=== PATIENT | male | born 1980 | race Asian ===

== ENCOUNTER 2016-09-18 18:40 | Emergency (ER) | payer BC ==
[2016-09-18] MEDS ORDERED: ONDANSETRON 4 MG TAB.RAPDIS PO ONE (19:36)
[2016-09-18] MEDS ORDERED: OXYCODONE-ACETAMINOPHEN 5-325 MG TABLET PO ONE (19:36)
--- NOTE | 2016-09-18 19:36 | ER Document Report ---
ED Medical Screen (RME) - General Chief Complaint: Groin Pain Stated Complaint: GROIN PAIN Time seen by provider: 19:32 Mode of Arrival: Ambulatory Information source: Patient Notes: 36-year-old male complaining of a left groin pain without injury for a week and seems to be getting worse when he stands and while he is at work. He is massage therapist. There is no testicular or penis pain there is no perianal or perineal pain. No Scrotal pain. He did have hernia repair on the right side but the pain that time was similar but was in the scrotum. pulse is 120. I have greeted and performed a rapid initial assessment of this patient. A comprehensive ED assessment, evaluation of the patient, analysis of test results , and completion of the medical decision making process will be contacted by additional ED providers. TRAVEL OUTSIDE OF THE [place] IN LAST 30 DAYS: No - Related Data Allergies/Adverse Reactions: No Known Allergies Allergy (Verified 04/10/15 20:04) Past Medical History - Past Medical History Cardiac Medical History: Denies: Hx Coronary Artery Disease, Hx Heart Attack, Hx Hypertension Pulmonary Medical History: Denies: Hx Asthma, Hx Bronchitis, Hx COPD, Hx Pneumonia Neurological Medical History: Reports: Hx Migraine. Denies: Hx Cerebrovascular Accident, Hx Seizures Musculoskeltal Medical History: Denies Hx Arthritis Past Surgical History: Reports: Hx Appendectomy, Hx Cholecystectomy, Hx Inguinal Hernia - Right-sided - Immunizations Immunizations up to date: Yes Hx Diphtheria, Pertussis, Tetanus Vaccination: Yes - 2012 Physical Exam - Vital signs Vitals: Temp Pulse BP Pulse Ox 98.5 F 120 H 137/83 H 96 09/18/16 19:20 09/18/16 19:20 09/18/16 19:20 09/18/16 19:20 Course - Vital Signs Vital signs: Temp Pulse Resp BP Pulse Ox 98.5 F 120 H 137/83 H 96 09/18/16 19:20 09/18/16 19:20 09/18/16 19:20 09/18/16 19:20
[2016-09-18 20:21] LABS: APPEARANCE,URINE CLEAR; BILIRUBIN,URINE NEGATIVE (NEGATIVE); GLUCOSE, URINE NEGATIVE (NEGATIVE); KETONES,URINE NEGATIVE (NEGATIVE); LEUKOCYTE ESTERASE,URINE NEGATIVE (NEGATIVE); NITRITE,URINE NEGATIVE (NEGATIVE); PROTEIN,URINE NEGATIVE (NEGATIVE); UROBILINOGEN,URINE NEGATIVE mg/dL (<2.0)
[2016-09-18 20:22] LABS: URINE SPECIFIC GRAVITY 1.019
[2016-09-19] MEDS ORDERED: HYDROCODONE/ACETAMINOPHEN 5-325 MG 6 TAB/DSPK PO PRN (00:24)
[2016-09-19] MEDS ORDERED: ONDANSETRON ODT 4 MG TAB (6 TAB/DSPK) PO PRN (00:25)
--- NOTE | 2016-09-19 00:26 | ER Document Report ---
ED GI/ - General Mode of Arrival: Ambulatory TRAVEL OUTSIDE OF THE [place] IN LAST 30 DAYS: No - HPI Patient complains to provider of: Groin pain Associated symptoms: Other - See above - General Chief Complaint: Groin Pain Stated Complaint: GROIN PAIN Notes: Patient is a 36 year old male, with a past surgical history including cholecystectomy and inguinal hernia repair on right side, who presents to the emergency department complaining of left sided groin pain. Patient reports the pain began about a week ago and has been worsening. Patient reports the pain is exacerbated by walking. Patient also complains of nausea. Patient denies testicular pain, vomiting, diarrhea, difficulty urinating, and penile discharge. (MICHELLE GRIMES) - Related Data Allergies/Adverse Reactions: No Known Allergies Allergy (Verified 04/10/15 20:04) Past Medical History - General Information source: Patient - Social History Smoking Status: Unknown if Ever Smoked Family History: Reviewed & Not Pertinent, CAD Patient has suicidal ideation: No Patient has homicidal ideation: No Neurological Medical History: Reports: Hx Migraine Past Surgical History: Reports: Hx Appendectomy, Hx Cholecystectomy, Hx Inguinal Hernia - Right-sided - Immunizations Immunizations up to date: Yes Hx Diphtheria, Pertussis, Tetanus Vaccination: Yes - 2012 Review of Systems - Review of Systems Constitutional: No symptoms reported EENT: No symptoms reported Cardiovascular: No symptoms reported Respiratory: No symptoms reported Gastrointestinal: See HPI, Nausea. denies: Diarrhea, Vomiting Genitourinary: See HPI, Other - Groin pain. denies: Dysuria Male Genitourinary: denies: Testicular pain, Penile discharge Musculoskeletal: No symptoms reported Skin: No symptoms reported Hematologic/Lymphatic: No symptoms reported Neurological/Psychological: No symptoms reported -: Yes All other systems reviewed and negative Physical Exam - Vital signs Interpretation: Normal - General General appearance: Appears well, Alert - HEENT Head: Normocephalic, Atraumatic - Respiratory Respiratory status: No respiratory distress Chest status: Nontender Breath sounds: Normal Chest palpation: Normal - Cardiovascular Rhythm: Regular Heart sounds: Normal auscultation Murmur: No - Abdominal Inspection: Normal Distension: No distension Bowel sounds: Normal Tenderness: Tender - Tenderness to palpation of left inguinal canal, no evidence of incarcerated hernia Organomegaly: No organomegaly - Genitourinary Tenderness: Nontender - Testicles and penis not tender t opalpation - Extremities General upper extremity: Normal inspection General lower extremity: Normal inspection - Neurological Neuro grossly intact: Yes Cognition: Normal Orientation: AAOx4 Don Coma Scale Eye Opening: Spontaneous Don Coma Scale Verbal: Oriented [place] Coma Scale Motor: Obeys Commands [place] Coma Scale Total: 15 Speech: Normal - Psychological Associated symptoms: Normal affect, Normal mood - Skin Skin Temperature: Warm Skin Moisture: Dry Skin Color: Normal Course - Re-evaluation Re-evalutation: 09/19/16 Patient with left inguinal hernia. No evidence for incarceration. Urine within normal limits. Patient will be discharged home and is to follow-up with surgery. Understands agrees with plan. Return immediately if any worsening or concerning symptoms. Stable for discharge. (TODD KING) - Vital Signs Vital signs: Temp Pulse Resp BP Pulse Ox 98 F 120 H 18 137/43 H 97 09/19/16 00:34 09/19/16 00:34 09/19/16 00:34 09/19/16 00:34 09/19/16 00:34 (MICHELLE GRIMES) (TODD KING) Discharge - Discharge Clinical Impression: Inguinal hernia, left Condition: Stable Disposition: HOME, SELF-CARE Instructions: Hernia ([facility]) Prescriptions: Docusate Sodium [Colace 100 mg Capsule] 100 mg PO BID #60 capsule Ondansetron [Zofran Odt 4 mg Tablet] 1 - 2 tab PO Q4H PRN #15 tab.rapdis PRN Reason: For Nausea/Vomiting Oxycodone HCl/Acetaminophen [Percocet 5-325 mg Tablet] 1 - 2 tab PO Q4H PRN #15 tablet PRN Reason: Referrals: HAKAN QUINTANA MD [ACTIVE STAFF] - Follow up in 3-5 days Scribe Attestation: 09/19/16 05:50 I personally performed the services described in the documentation, reviewed and edited the documentation which was dictated to the scribe in my presence, and it accurately records my words and actions. (TODD KING) Scribe Documentation - Scribe Written by Scribe:: pardeep Marlow, 09/19/16, 0139 acting as scribe for :: Alejandra
[2016-09-19 00:36] VITALS: BP 137/43
== END 2016-09-19 00:35 | disposition home or self-care (01) ==
LOC: ER 18:40
DX: K40.90 Unilateral inguinal hernia, without obstruction or gangrene, not specified as recurrent (principal); R10.30 Lower abdominal pain, unspecified; R11.0 Nausea
CPT/HCPCS: 99283; 87086; 81001; S0119

== ENCOUNTER → 2016-10-12 | Outpatient (CLI) | payer BC | LOC: RAD 08:51 | PROVIDERS: ATTEND Surgery | DX: K40.90 Unilateral inguinal hernia, without obstruction or gangrene, not specified as recurrent (principal) | CPT/HCPCS: 72192 ==

== ENCOUNTER 2016-12-06 08:20 | Day surgery (SDC) | payer BC ==
--- NOTE | 2016-11-29 11:20 | EKG REPORT ---
SEVERITY:- OTHERWISE NORMAL ECG - SINUS TACHYCARDIA : Confirmed by: Abdifatah Monge 29-Nov-2016 11:19:08
[2016-11-29 11:34] LABS: HEMATOCRIT 49.8 % (37.9-51.0); HEMOGLOBIN 17.3 g/dL (13.5-17.0); HGB HCT DIFFERENCE 2.1; MEAN CORPUSCULAR HEMOGLOBIN 31.5 pg (27.0-33.4); MEAN CORPUSCULAR HGB CONC 34.7 g/dL (32.0-36.0); MEAN CORPUSCULAR VOLUME 91 fl (80-97); RED BLOOD COUNT 5.48 10^6/uL (4.35-5.55); WHITE BLOOD COUNT 11.2 10^3/uL (4.0-10.5)
[2016-11-29 11:59] LABS: ANION GAP 13 (5-19); BLOOD UREA NITROGEN 11 mg/dL (7-20); CALCIUM 9.7 mg/dL (8.4-10.2); CARBON DIOXIDE 26 mmol/L (22-30); CHLORIDE 102 mmol/L (98-107); CREATININE RESULT 0.81 mg/dL (0.52-1.25); GLUCOSE 267 mg/dL (75-110); POTASSIUM 4.7 mmol/L (3.6-5.0); SODIUM 140.5 mmol/L (137-145)
[~2016-12-06 08:20] MED LIST: BACITRACIN INJ 50,000 UNIT VIAL ONE; BUPIVACAINE HCL 0.25 % INJ/PF (2.5 MG/1 ML) 30 ML VIAL ONE; CEFAZOLIN 1 GM/D5W RTU 1 GM/50 ML RTUPB IV PRN; LACTATED RINGERS 1000 ML IV PRN; LIDOCAINE 0.5% INJ-PF (5 MG/ML) 50 ML SDV ONE; LIDOCAINE 0.5% INJ-PF (5 MG/ML) 50 ML SDV SUBCUT PRN
[2016-12-06] MEDS ORDERED: FENTANYL CITRATE INJ/PF 250 MCG/5 ML AMPULE ONE (10:12)
[2016-12-06] MEDS ORDERED: MIDAZOLAM 2 MG/2 ML INJ ONE (10:13)
[2016-12-06] MEDS ORDERED: PROPOFOL INJ 200 MG/20 ML VIAL IV ONE (10:13)
[2016-12-06] MEDS ORDERED: ACETAMINOPHEN 100 ML IV ONE (10:13)
[2016-12-06] MEDS ORDERED: MORPHINE SULFATE 10 MG/ML INJ ONE (10:14)
[2016-12-06] MEDS ORDERED: OXYCODONE-ACETAMINOPHEN 5-325 MG TABLET PO PRN ×2 (11:25)
[2016-12-06] MEDS ORDERED: PROMETHAZINE HCL INJ 25 MG/1 ML VIAL IV PRN ×2 (11:25)
[2016-12-06] MEDS ORDERED: MEPERIDINE HCL/PF INJ 25 MG/1 ML DISP.SYRIN IV PRN (11:25)
[2016-12-06] MEDS ORDERED: FENTANYL CITRATE INJ/PF 100 MCG/2 ML AMPUL IV PRN ×3 (11:25)
[2016-12-06] MEDS ORDERED: MORPHINE SULFATE 10 MG/ML INJ IV PRN (11:25)
[2016-12-06] MEDS ORDERED: DIPHENHYDRAMINE HCL 50 MG/ML VIAL IV PRN (11:25)
--- NOTE | 2016-12-06 12:00 | PDOC DISCHARGE SUMMARY ---
Discharge Summary (SDC) - Discharge Final Diagnosis: #1 left inguinal hernia, symptomatic. #2 increased body mass index. #3 migraines. Date of Surgery: 12/06/16 Discharge Date: 12/06/16 Condition: Good Treatment or Instructions: #1 activities within moderation encouraged. Activity up to the level of walking encouraged. No lifting over 10 pounds. #2 follow up in my office by appointment in about 1 week. Call for appointment. #3 the wounds covered clean and dry until office visit. #4 hold off on school/work until evaluation in office. #5 may shower in 48 hours, keep operated area as dry as possible. #6 discharge from ambulatory when ASU criteria met. #7 medications per medication reconciliation sheet. #8 Percocet and Toradol by prescription.. Also may have one Percocet up to every 2 hours when necessary for pain greater than 4 out of 10 while in the ASU Prescriptions: Ketorolac Tromethamine [Toradol 10 mg Tablet] 10 mg PO Q8HP PRN #9 tablet PRN Reason: Oxycodone HCl/Acetaminophen [Percocet 5-325 mg Tablet] 1 tab PO ASDIR PRN #15 tab PRN Reason: Discharge Diet: As Tolerated Respiratory Treatments at Home: Deep Breathing/Coughing Discharge Activity: No Lifting Over 10 Pounds, Walk Frequently Report the Following to Your Physician Immediately: Shortness of Breath, Unusual Bleeding
--- NOTE | 2016-12-06 13:45 | Operative Report ---
Operative Report DATE OF SURGERY: 12/06/16 PREOPERATIVE DIAGNOSIS: #1 left inguinal hernia, symptomatic. #2 increased body mass index. #3 migraines POSTOPERATIVE DIAGNOSIS: #1 left inguinal hernia, symptomatic. Direct. Lipoma of cord. #2 increased body mass index. #3 migraines OPERATION: Repair of direct inguinal hernia and removal of lipoma of cord. Insertion of hernia mesh. SURGEON: OLEGARIO ASHFORD DETECTIVE SUPERVISOR: none ANESTHESIA: GA TISSUE REMOVED OR ALTERED: Lipoma of cord COMPLICATIONS: None ESTIMATED BLOOD LOSS: 10 mL. INTRAOPERATIVE FINDINGS: Of a lipoma of cord. Which was excised The internal ring actually quite tight with no indirect sac. A large bulging direct hernia appreciated. Once the preperitoneal dissection at been done, it was appreciated that the femoral canal without was also clear. Nice preperitoneal coverage was accomplished using a Prolene hernia system bilayer mesh. Because of the tight ring which made preperitoneal coverage difficult to achieve, the connector of the mesh was placed at an opening in the transversalis fascia over the direct component. This resulted in nice coverage of all potential hernia offices. The ilioinguinal nerve was noted and protected. PROCEDURE: After obtaining informed consent and going over the procedure with [the patient ], he was taken to the operating room, he was anesthetized and intubated. The abdomen was prepped and draped in the usual sterile fashion. After the universal timeout, in which it was verified that the patient received IV antibiotic, the procedure commenced. A transverse incision was made in the left lower abdomen abdominal, groin area, just above the pubic tubercle. 6 cm in length.Local, regional anesthesia was infiltrated, just before incision.. Incision was made with a [15 blade scalpel] . Dissection now proceeded through the subcutaneous tissue down to the external oblique aponeurosis. The external ring was identified and the external oblique opened in the line of its fibers. The inguinal canal was thus displayed. Dissection was facilitated by the use a headlight and using loupe magnification. The spermatic cord was dissected off the pubic tubercle and surrounded with a moist Mabank drain, the cremasteric fascia was now incised longitudinally revealing the contents of the spermatic cord. A lipoma of the cord was readily evident and this was grasped with a hemostat. It was now dissected in a retrograde fashion into the retroperitoneal space. It was clamped divided and doubly ligated with 3-0 Vicryl. The internal ring was quite tight and after identifying the hypogastric vessels and dissecting beneath them it was appreciated that coverage of the this would be difficult. The transversalis fascia, tented over a bulging direct hernia was incised and dissection proceeded into the preperitoneal space. The hernia was now nicely reduced. The opportunity was taken to dissect the preperitoneum quite nicely so that the space beneath the pubic tubercle, superiorly and laterally and then inferiorly over the femoral canal and adjacent structures were free. This space easily accommodated a Ray-Estrella sponge which was then removed. Hemostasis was checked for and ensured. The space between the external and internal oblique aponeuroses was now developed to accommodate the external portion of the mesh. Having done so a Prolene hernia system mesh was now folded, in the antitank assault gunner's approved fashion and inserted into the preperitoneal space. It was deployed as flat as possible. The internal portion was deployed flat in the preperitoneal space the external portion was unfolded and tucked beneath the external oblique. Secured with a 0 PDS suture to the internal oblique superiorly, the fascia adjacent to the pubic tubercle medially, inferiorly it was split , the the split mesh was now used to surround the spermatic cord. It was reapproximated with a suture of 0 PDS. 0 PDS was now used to approximate the inferior border of the mesh to the shelving edge of Poupart's ligament with a single suture. Laterally the mesh was tucked beneath the external oblique. The external oblique was now reconstituted using a continuous suture of 3-0 PDS. 3-0 PDS interrupted sutures were used to approximate the subcutaneous tissues after removing the Mabank drain. The skin was closed using a continuous subcuticular suture of 4-0 Monocryl reinforced with Steri-Strips over benzoin. Copies dictated operative report to Dr. Olegario Glasgow MD.
[2016-12-06 14:11] VITALS: BP 127/86
[2016-12-06] MEDS ORDERED: LIDOCAINE 2% INJ-PF (20 MG/ML) 10 ML AMPUL ONE (14:54)
[2016-12-06] MEDS ORDERED: KETOROLAC TROMETHAMINE 60 MG/2 ML SDV ONE (14:54)
[2016-12-06] MEDS ORDERED: ROCURONIUM BROMIDE INJ 50 MG/5 ML VIAL IV ONE (14:54)
[2016-12-06] MEDS ORDERED: SUCCINYLCHOLINE CHLORIDE INJ 200 MG/10 ML VIAL ONE (14:54)
[2016-12-06] MEDS ORDERED: GLYCOPYRROLATE INJ 0.4 MG/2 ML VIAL ONE (14:54)
[2016-12-06] MEDS ORDERED: ONDANSETRON HCL INJ/PF 4 MG/2 ML SDV ONE (14:54)
[2016-12-06] MEDS ORDERED: METOCLOPRAMIDE HCL INJ/PF 10 MG/2 ML SDV ONE (14:54)
[2016-12-06] MEDS ORDERED: NEOSTIGMINE METHYLSULFATE 10 MG/10 ML VIAL ONE (14:54)
[2016-12-06] MEDS ORDERED: PHENYLEPHRINE HCL INJ/PF 10 MG/1 ML SDV ONE (14:54)
--- NOTE | 2016-12-06 15:43 | Operative Report ---
Operative Report DATE OF SURGERY: 12/06/16 PREOPERATIVE DIAGNOSIS: #1 left inguinal hernia, symptomatic. #2 increased body mass index. #3 migraines POSTOPERATIVE DIAGNOSIS: #1 left inguinal hernia, symptomatic. Direct. Lipoma of cord. #2 increased body mass index. #3 migraines OPERATION: Repair of direct inguinal hernia and removal of lipoma of cord. Insertion of hernia mesh. SURGEON: OLEGARIO ASHFORD MOLD FILLER AND DRAINER: none ANESTHESIA: GA TISSUE REMOVED OR ALTERED: Lipoma of cord ESTIMATED BLOOD LOSS: 10 mL. INTRAOPERATIVE FINDINGS: Of a lipoma of cord. Which was excised The internal ring actually quite tight with no indirect sac. A large bulging direct hernia appreciated. Once the preperitoneal dissection at been done, it was appreciated that the femoral canal without was also clear. Nice preperitoneal coverage was accomplished using a Prolene hernia system bilayer mesh. Because of the tight ring which made preperitoneal coverage difficult to achieve, the connector of the mesh was placed at an opening in the transversalis fascia over the direct component. This resulted in nice coverage of all potential hernia offices. The ilioinguinal nerve was noted and protected. PROCEDURE: The residential real estate assistant provided retraction, thus facilitating the operative view. Controlled bleeding. The residential real estate assistant also followed the suturing, thus facilitating accurate suture placement. Sutured skin and applied dressings.
== END 2016-12-06 14:10 | disposition home or self-care (01) ==
LOC: OROUT 08:20
PROVIDERS: ATTEND Surgery
PROC: 0YU60JZ Supplement Left Inguinal Region with Synthetic Substitute, Open Approach (ICD-10-PCS; principal; 2016-12-06 10:30)
DX: K40.90 Unilateral inguinal hernia, without obstruction or gangrene, not specified as recurrent (principal); D17.6 Benign lipomatous neoplasm of spermatic cord; G43.909 Migraine, unspecified, not intractable, without status migrainosus; F17.210 Nicotine dependence, cigarettes, uncomplicated; Z79.899 Other long term (current) drug therapy
CPT/HCPCS: 93005; 36415; 82962; 85027; 80048; 88304 ×2; 71020; 93010; 49505; C1781; J2250; J3490 ×4; J0690; J1885; J3010; J2765; J2370; J0330; J2405; J2704; J0131; 830; J2270

== ENCOUNTER 2017-11-19 13:47 | Emergency (ER) | payer BC ==
--- NOTE | 2017-11-19 15:00 | ER Document Report ---
ED Medical Screen (RME) - General Chief Complaint: Bloody Stools Stated Complaint: BLOOD IN STOOL Time Seen by Provider: 11/19/17 14:56 Notes: 37-year-old male patient reports onset yesterday evening of abdominal pain with bright red blood with bowel movements. There is no pain on defecation, no pain when wiping. He states his stool caliber and consistency is normal for him. I have greeted and performed a rapid initial assessment of this patient. A comprehensive ED assessment and evaluation of the patient, analysis of test results and completion of the medical decision making process will be conducted by additional ED providers. TRAVEL OUTSIDE OF THE [place] IN LAST 30 DAYS: No - Related Data Allergies/Adverse Reactions: No Known Allergies Allergy (Verified 11/19/17 13:47) Past Medical History - Social History Chew tobacco use (# tins/day): No Frequency of alcohol use: Rare Drug Abuse: None - Past Medical History Cardiac Medical History: Reports: Hx Hypertension - WITH PAIN Denies: Hx Coronary Artery Disease, Hx Heart Attack Pulmonary Medical History: Denies: Hx Asthma, Hx Bronchitis, Hx COPD, Hx Pneumonia Neurological Medical History: Reports: Hx Migraine. Denies: Hx Cerebrovascular Accident, Hx Seizures Renal/ Medical History: Denies: Hx Peritoneal Dialysis Musculoskeltal Medical History: Denies Hx Arthritis Past Surgical History: Reports: Hx Appendectomy, Hx Cholecystectomy, Hx Inguinal Hernia - Right-sided - Immunizations Immunizations up to date: Yes Hx Diphtheria, Pertussis, Tetanus Vaccination: Yes Physical Exam - Vital signs Vitals: Temp Pulse Resp BP Pulse Ox 98.5 F 120 H 16 150/96 H 96 11/19/17 13:55 11/19/17 13:55 11/19/17 13:55 11/19/17 13:55 11/19/17 13:55 Course - Vital Signs Vital signs: Temp Pulse Resp BP Pulse Ox 98.5 F 120 H 16 150/96 H 96 11/19/17 13:55 11/19/17 13:55 11/19/17 13:55 11/19/17 13:55 11/19/17 13:55
[2017-11-19 15:29] LABS: ABSOLUTE BASOPHILS # (AUTO) 0.1 10^3/uL (0.0-0.2); ABSOLUTE EOSINOPHILS # (AUTO) 0.9 10^3/uL (0.0-0.6); ABSOLUTE LYMPHOCYTES (AUTO) 3.9 10^3/uL (0.5-4.7); ABSOLUTE MONOCYTES (AUTO) 0.9 10^3/uL (0.1-1.4); ABSOLUTE NEUT (AUTO) 6.6 10^3/uL (1.7-8.2); EOSINOPHILS % (AUTO) 7.2 % (0-6); HEMATOCRIT 48.5 % (37.9-51.0); HEMOGLOBIN 16.8 g/dL (13.5-17.0); LYMPHOCYTES % (AUTO) 31.4 % (13-45); MEAN CORPUSCULAR HEMOGLOBIN 30.7 pg (27.0-33.4); MEAN CORPUSCULAR HGB CONC 34.7 g/dL (32.0-36.0); MEAN CORPUSCULAR VOLUME 88 fl (80-97); MONOCYTES % (AUTO) 7.3 % (3-13); PLATELET COUNT 300 10^3/uL (150-450); RED BLOOD COUNT 5.48 10^6/uL (4.35-5.55); RED CELL DISTRIBUTION WIDTH 13.6 % (11.5-14.0); SEGMENTED NEUTROPHILS % (AUTO) 53.1 % (42-78); TOTAL CELLS COUNTED % (AUTO) 100 %; WHITE BLOOD COUNT 12.4 10^3/uL (4.0-10.5)
[2017-11-19 15:43] LABS: APPEARANCE,URINE CLEAR; BILIRUBIN,URINE NEGATIVE (NEGATIVE); COLOR,URINE YELLOW; GLUCOSE, URINE NEGATIVE (NEGATIVE); KETONES,URINE NEGATIVE (NEGATIVE); LEUKOCYTE ESTERASE,URINE NEGATIVE (NEGATIVE); NITRITE,URINE NEGATIVE (NEGATIVE); PROTEIN,URINE NEGATIVE (NEGATIVE); URINE SPECIFIC GRAVITY 1.018; UROBILINOGEN,URINE NEGATIVE mg/dL (<2.0)
[2017-11-19 15:47] LABS: ALANINE AMINOTRANSFERASE 217 U/L (21-72); ALBUMIN 4.9 g/dL (3.5-5.0); ALKALINE PHOSPHATASE 112 U/L (38-126); ANION GAP 15 (5-19); ASPARTATE AMINO TRANSFERASE 144 U/L (17-59); BILIRUBIN,DIRECT 0.2 mg/dL (0.0-0.4); BILIRUBIN,TOTAL 0.5 mg/dL (0.2-1.3); BLOOD UREA NITROGEN 19 mg/dL (7-20); CALCIUM 10.3 mg/dL (8.4-10.2); CARBON DIOXIDE 25 mmol/L (22-30); CHLORIDE 102 mmol/L (98-107); GLUCOSE 137 mg/dL (75-110); POTASSIUM 4.5 mmol/L (3.6-5.0); SODIUM 141.6 mmol/L (137-145); TOTAL PROTEIN 7.8 g/dL (6.3-8.2)
[2017-11-19] MEDS ORDERED: ONDANSETRON HCL INJ/PF 4 MG/2 ML SDV IV ONE (15:50)
[2017-11-19] MEDS ORDERED: MORPHINE SULFATE 10 MG/ML INJ IV ONE (15:50)
[2017-11-19] MEDS ORDERED: NORMAL SALINE 1000 ML 1,000 ML IV ONE (15:50)
--- NOTE | 2017-11-19 15:52 | ER Document Report ---
ED GI Bleed / Rectal Pain - General Chief Complaint: Bloody Stools Stated Complaint: BLOOD IN STOOL Time Seen by Provider: 11/19/17 14:56 Mode of Arrival: Ambulatory Information source: Patient TRAVEL OUTSIDE OF THE [place] IN LAST 30 DAYS: No - HPI Patient complains to provider of: Bright red bld from rect., Dark red bld from rectum Onset: Yesterday Timing/Duration: Persistent Quality of pain: Achy, Cramping Severity of symptoms: Moderate Pain Level: 3 Exacerbated by: Denies Relieved by: Denies Similar symptoms previously: No Recently seen / treated by doctor: No Notes: Patient is a 37-year-old male presenting to the emergency room complaining of lower abdominal pain and cramping with nausea and bloody diarrhea, symptoms have been going on since yesterday, he denies any history of any inflammatory bowel disease, does have a history of appendectomy and cholecystectomy in the past, he is a smoker but rarely consumes alcohol and denies any illicit drug use , no history of GI bleeding in the past - Related Data Allergies/Adverse Reactions: No Known Allergies Allergy (Verified 11/19/17 13:47) Past Medical History - General Information source: Patient - Social History Smoking Status: Current Every Day Smoker Chew tobacco use (# tins/day): No Frequency of alcohol use: Rare Drug Abuse: None Family History: Reviewed & Not Pertinent, CAD Patient has suicidal ideation: No Patient has homicidal ideation: No - Past Medical History Cardiac Medical History: Reports: Hx Hypertension - WITH PAIN Denies: Hx Coronary Artery Disease, Hx Heart Attack Pulmonary Medical History: Denies: Hx Asthma, Hx Bronchitis, Hx COPD, Hx Pneumonia Neurological Medical History: Reports: Hx Migraine. Denies: Hx Cerebrovascular Accident, Hx Seizures Renal/ Medical History: Denies: Hx Peritoneal Dialysis Musculoskeltal Medical History: Denies Hx Arthritis Past Surgical History: Reports: Hx Appendectomy, Hx Cholecystectomy, Hx Inguinal Hernia - Right-sided - Immunizations Immunizations up to date: Yes Hx Diphtheria, Pertussis, Tetanus Vaccination: Yes Review of Systems - Review of Systems Constitutional: No symptoms reported EENT: No symptoms reported Cardiovascular: No symptoms reported Respiratory: No symptoms reported Gastrointestinal: See HPI Genitourinary: No symptoms reported Male Genitourinary: No symptoms reported Musculoskeletal: No symptoms reported Skin: No symptoms reported Hematologic/Lymphatic: No symptoms reported Neurological/Psychological: No symptoms reported -: Yes All other systems reviewed and negative Physical Exam - Vital signs Vitals: Temp Pulse Resp BP Pulse Ox 98.5 F 120 H 16 150/96 H 96 11/19/17 13:55 11/19/17 13:55 11/19/17 13:55 11/19/17 13:55 11/19/17 13:55 Interpretation: Tachycardic - General General appearance: Appears well, Alert - HEENT Head: Normocephalic, Atraumatic Eyes: Normal Pupils: PERRL - Respiratory Respiratory status: No respiratory distress Chest status: Nontender Breath sounds: Normal Chest palpation: Normal - Cardiovascular Rhythm: Regular Heart sounds: Normal auscultation Murmur: No - Abdominal Inspection: Normal Distension: No distension Bowel sounds: Normal Tenderness: Tender - Right lower quadrant and left lower quadrant Organomegaly: No organomegaly - Rectal Tenderness: No Stool: Other - Small amount of gross blood, bright red - Back Back: Normal, Nontender - Extremities General upper extremity: Normal inspection, Nontender, Normal color, Normal ROM , Normal temperature General lower extremity: Normal inspection, Nontender, Normal color, Normal ROM , Normal temperature, Normal weight bearing. No: Cedrick's sign - Neurological Neuro grossly intact: Yes Cognition: Normal Orientation: AAOx4 [place] Coma Scale Eye Opening: Spontaneous Don Coma Scale Verbal: Oriented [place] Coma Scale Motor: Obeys Commands [place] Coma Scale Total: 15 Speech: Normal Motor strength normal: LUE, RUE, LLE, RLE Sensory: Normal - Psychological Associated symptoms: Normal affect, Normal mood - Skin Skin Temperature: Warm Skin Moisture: Dry Skin Color: Normal Course - Re-evaluation Re-evalutation: 11/19/17 18:27 Lab and imaging findings discussed with patient at bedside which are unremarkable, except for mild liver enzyme elevation and evidence of fatty liver on CT scan, also mild leukocytosis noted, patient reports a known history of fatty liver disease with liver enzyme changes, denies any pain in the right upper quadrant, no vomiting, rectal exam is consistent with small internal hemorrhoids with small amount of gross bright red blood, hemoglobin is 16.8, vital signs are stable, therefore patient will be discharged with instructions for follow-up with gastroenterology, as well as a prescription for stool softeners and antibiotics, advised to return if symptoms worsen, patient acknowledges understanding and agreement with this plan - Vital Signs Vital signs: Temp Pulse Resp BP Pulse Ox 98.5 F 120 H 16 150/96 H 96 11/19/17 13:55 11/19/17 13:55 11/19/17 13:55 11/19/17 13:55 11/19/17 13:55 - Laboratory Result Diagrams: 11/19/17 15:08 11/19/17 15:08 Laboratory results interpreted by me: 11/19/17 11/19/17 15:08 15:08 WBC 12.4 H Eosinophils % 7.2 H Absolute Eosinophils 0.9 H Glucose 137 H Calcium 10.3 H AST 144 H ALT 217 H - Diagnostic Test Radiology reviewed: Image reviewed, Reports reviewed Discharge - Discharge Clinical Impression: Internal hemorrhoids, Rectal bleeding Abdominal pain Qualifiers: Abdominal location: lower abdomen, unspecified Qualified Code(s): R10.30 - Lower abdominal pain, unspecified Condition: Stable Disposition: HOME, SELF-CARE Instructions: Abdominal Pain ([facility]), Hemorrhoids ([facility]), Rectal Bleeding, Unclear Cause ([facility]), Gastroenterology Additional Instructions: Follow up with your primary care provider and gastroenterology in one to 2 days. Return to the emergency room immediately if symptoms worsen or any additional concerns. Prescriptions: Docusate Sodium [Colace] 100 mg PO BID #60 capsule Metronidazole [Flagyl 500 mg Tablet] 500 mg PO TID #21 tablet
--- NOTE | 2017-11-19 17:21 | RADIOLOGY REPORT (SQ) ---
EXAM DESCRIPTION: CT ABD/PELVIS WITH IV ONLY COMPLETED DATE/TIME: 11/19/2017 5:12 pm REASON FOR STUDY: pain, bloody stools COMPARISON: None. TECHNIQUE: CT scan of the abdomen and pelvis performed using helical scanning technique with dynamic intravenous contrast injection. No oral contrast. Images reviewed with lung, soft tissue, and bone windows. Reconstructed coronal and sagittal MPR images reviewed. Delayed images for evaluation of the urinary system also acquired. All images stored on PACS. All CT scanners at this facility use dose modulation, iterative reconstruction, and/or weight based d osing when appropriate to reduce radiation dose to as low as reasonably achievable (ALARA). [facility]: Dose Right [facility]: CareDose [facility]: Dose Right [facility]: Teradose 4D [facility]: Solazyme CONTRAST TYPE AND DOSE: contrast/concentration: Isovue 370.00 mg/ml; Total Contrast Delivered: 91.0 ml; Total Saline Delivered: 58.0 ml RENAL FUNCTION: None required. The patient is less than 50 years old. RADIATION DOSE: CT Rad equipment meets quality standard of care and radiation dose reduction techniq ues were employed. CTDIvol: 18.6 - 20.3 mGy. DLP: 2189 mGy-cm.. LIMITATIONS: None. FINDINGS: LOWER CHEST: No significant findings. No nodules or infiltrates. LIVER: Diffuse fatty infiltration of the liver. No focal masses. SPLEEN: Normal size. No focal lesions. PANCREAS: No masses. No significant calcifications. No adjacent inflammation or peripancreatic fluid collections. Pancreatic duct not dilated. GALLBLADDER: Surgically absent. ADRENAL GLANDS: No significant masses or asymmetry. RIGHT KIDNEY AND URETER: No solid masses. No significant calcifications. No hydronephrosis or hyd roureter. LEFT KIDNEY AND URETER: No solid masses. No significant calcifications. No hydronephrosis or hydr oureter. AORTA AND VESSELS: No aneurysm. No dissection. Renal arteries, SMA, celiac without stenosis. RETROPERITONEUM: No retroperitoneal adenopathy, hemorrhage or masses. BOWEL AND PERITONEAL CAVITY: No masses or inflammatory changes. No free fluid or peritoneal masses. APPENDIX: Surgically absent. PELVIS: No mass. No free fluid. Normal bladder. ABDOMINAL WALL: No masses. No hernias. BONES: No significant or acute findings. OTHER: No other significant finding. IMPRESSION: Diffuse fatty liver. No other finding. TECHNICAL DOCUMENTATION: JOB ID: [id number] Quality ID # [id number]: Final reports with documentation of one or more dose reduction techniques (e.g., Au tomated exposure control, adjustment of the mA and/or kV according to patient size, use of iterative reconstruction technique) 2010 [employer]- All Rights Reserved Reading location - IP/workstation name: [email or web address]
[2017-11-19 18:01] LABS: PROTHROMBIN TIME 13.5 SEC (11.4-15.4)
[2017-11-19 18:02] LABS: INTERNATIONAL RATION (INR) 0.98; PARTIAL THROMBOPLASTIN TIME 34.9 SEC (23.5-35.8)
[2017-11-19 18:52] VITALS: BP 113/73
== END 2017-11-19 18:52 | disposition home or self-care (01) ==
LOC: ER 13:47
DX: K64.8 Other hemorrhoids (principal); K62.5 Hemorrhage of anus and rectum; R10.30 Lower abdominal pain, unspecified; R11.0 Nausea; R19.7 Diarrhea, unspecified; R74.8 Abnormal levels of other serum enzymes; D72.829 Elevated white blood cell count, unspecified; Z90.49 Acquired absence of other specified parts of digestive tract; F17.200 Nicotine dependence, unspecified, uncomplicated; I10 Essential (primary) hypertension
CPT/HCPCS: 99284; 96361; 96374; 96375; 36415; 83690; 85025; 85610; 85730; 80053; 81001; 74177; J2270; J2405; J7030

== ENCOUNTER 2017-12-01 14:17 | Emergency (ER) | payer BC ==
--- NOTE | 2017-12-01 15:21 | ER Document Report ---
ED Medical Screen (RME) - General Chief Complaint: Diarrhea Stated Complaint: ABDOMINAL PAIN/DIARRHEA Time Seen by Provider: 12/01/17 15:10 Mode of Arrival: Ambulatory Information source: Patient Notes: 37-year-old male history of abdominal pain bloody stools approximately seen 2 weeks ago placed on Flagyl with a normal CT of the abdomen presents with complaints of continued bleeding and abdominal pain. Patient noted to be tachycardic upon arrival I have greeted and performed a rapid initial assessment of this patient. A comprehensive ED assessment and evaluation of the patient, analysis of test results and completion of the medical decision making process will be conducted by additional ED providers. PHYSICAL EXAMINATION: GENERAL: Well-appearing, well-nourished and in no acute distress. HEAD: Atraumatic, normocephalic. EYES: Pupils equal round extraocular movements intact, conjunctiva are normal. ENT: Nares patent NECK: Normal range of motion LUNGS: No respiratory distress Musculoskeletal: Normal range of motion NEUROLOGICAL: Normal speech, normal gait. PSYCH: Normal mood, normal affect. SKIN: Warm, Dry, normal turgor, no rashes or lesions noted. TRAVEL OUTSIDE OF THE [place] IN LAST 30 DAYS: No - Related Data Allergies/Adverse Reactions: No Known Allergies Allergy (Verified 12/01/17 14:17) Past Medical History - Social History Chew tobacco use (# tins/day): No Frequency of alcohol use: Rare Drug Abuse: None - Past Medical History Cardiac Medical History: Reports: Hx Hypertension - WITH PAIN Denies: Hx Coronary Artery Disease, Hx Heart Attack Pulmonary Medical History: Denies: Hx Asthma, Hx Bronchitis, Hx COPD, Hx Pneumonia Neurological Medical History: Reports: Hx Migraine. Denies: Hx Cerebrovascular Accident, Hx Seizures Endocrine Medical History: Reports: Hx Diabetes Mellitus Type 2 Renal/ Medical History: Denies: Hx Peritoneal Dialysis Musculoskeltal Medical History: Denies Hx Arthritis Past Surgical History: Reports: Hx Abdominal Surgery - hernia x2, Hx Appendectomy, Hx Cholecystectomy, Hx Inguinal Hernia - Right-sided - Immunizations Immunizations up to date: Yes Hx Diphtheria, Pertussis, Tetanus Vaccination: Yes Physical Exam - Vital signs Vitals: Temp Pulse Resp BP Pulse Ox 98.5 F 125 H 16 153/95 H 98 12/01/17 14:21 12/01/17 14:21 12/01/17 14:21 12/01/17 14:21 12/01/17 14:21 Course - Vital Signs Vital signs: Temp Pulse Resp BP Pulse Ox 98.5 F 125 H 16 153/95 H 98 12/01/17 14:21 12/01/17 14:21 12/01/17 14:21 12/01/17 14:21 12/01/17 14:21
[2017-12-01] MEDS ORDERED: NORMAL SALINE 1000 ML 1,000 ML IV ONE (15:50)
--- NOTE | 2017-12-01 16:12 | ER Document Report ---
ED General - General Chief Complaint: Diarrhea Stated Complaint: ABDOMINAL PAIN/DIARRHEA Time Seen by Provider: 12/01/17 15:10 Mode of Arrival: Ambulatory Notes: 37-year-old male to emergency department chief complaint of abdominal pain and diarrhea with blood in the stool. Patient was seen here 2 weeks ago for bloody bowel movements but not diarrhea. At that time he was treated with some antibiotics. Had a CT scan at that time it was reportedly unremarkable. Has taken his antibiotics but continues to have worsening abdominal pain and bleeding. Has not had any fever, chills, sweats. Denies any other extra- abdominal symptoms such as mouth sores, vision changes, eye problems or rash. TRAVEL OUTSIDE OF THE [place] IN LAST 30 DAYS: No - HPI Onset: Last week - Related Data Allergies/Adverse Reactions: No Known Allergies Allergy (Verified 12/01/17 14:17) Past Medical History - General Information source: Patient - Social History Smoking Status: Current Every Day Smoker Chew tobacco use (# tins/day): No Frequency of alcohol use: Rare Drug Abuse: None Family History: Reviewed & Not Pertinent, CAD Patient has suicidal ideation: No Patient has homicidal ideation: No - Past Medical History Cardiac Medical History: Reports: Hx Hypertension - WITH PAIN Denies: Hx Coronary Artery Disease, Hx Heart Attack Pulmonary Medical History: Denies: Hx Asthma, Hx Bronchitis, Hx COPD, Hx Pneumonia Neurological Medical History: Reports: Hx Migraine. Denies: Hx Cerebrovascular Accident, Hx Seizures Endocrine Medical History: Reports: Hx Diabetes Mellitus Type 2 Renal/ Medical History: Denies: Hx Peritoneal Dialysis Musculoskeltal Medical History: Denies Hx Arthritis Past Surgical History: Reports: Hx Abdominal Surgery - hernia x2, Hx Appendectomy, Hx Cholecystectomy, Hx Inguinal Hernia - Right-sided - Immunizations Immunizations up to date: Yes Hx Diphtheria, Pertussis, Tetanus Vaccination: Yes Review of Systems - Review of Systems Constitutional: denies: Fever, Malaise, Weakness EENT: No symptoms reported. denies: Eye pain, Eye discharge, Blurred vision, Ear pain, Throat pain, Mouth pain Cardiovascular: denies: Chest pain, Palpitations, Heart racing Respiratory: denies: Cough, Hurts to breathe, Hemoptysis, Short of breath Gastrointestinal: Abdominal pain, Diarrhea, Nausea, Blood streaked bowels. denies: Vomiting Genitourinary: denies: Dysuria, Discharge, Flank pain, Urgency Male Genitourinary: No symptoms reported Musculoskeletal: denies: Back pain, Gout, Joint pain Skin: denies: Dryness, Lesions, Lumps, Rash Hematologic/Lymphatic: denies: Anemia, Blood clots, Easy bleeding, Easy bruising Neurological/Psychological: denies: Confusion, Weakness, Headaches, Numbness Physical Exam - Vital signs Vitals: Temp Pulse Resp BP Pulse Ox 98.5 F 125 H 16 153/95 H 98 12/01/17 14:21 12/01/17 14:21 12/01/17 14:21 12/01/17 14:21 12/01/17 14:21 Interpretation: Normal - General General appearance: Appears well, Alert - HEENT Head: Normocephalic, Atraumatic Eyes: Normal Pupils: PERRL - Respiratory Respiratory status: No respiratory distress Chest status: Nontender Breath sounds: Normal Chest palpation: Normal - Cardiovascular Rhythm: Regular Heart sounds: Normal auscultation Murmur: No - Abdominal Inspection: Normal Distension: No distension Bowel sounds: Normal Tenderness: Nontender. No: Dunlap's sign, Guarding, Rebound Organomegaly: No organomegaly - Back Back: Normal, Nontender - Extremities General upper extremity: Normal inspection, Nontender, Normal color, Normal ROM , Normal temperature General lower extremity: Normal inspection, Nontender, Normal color, Normal ROM , Normal temperature, Normal weight bearing. No: Cedrick's sign - Neurological Neuro grossly intact: Yes Cognition: Normal Orientation: AAOx4 [place] Scale Eye Opening: Spontaneous [place] Com[place] Scale Verbal: Oriented [place] Coma Scale Motor: Obeys Commands [place] Coma Scale Total: 15 Speech: Normal Motor strength normal: LUE, RUE, LLE, RLE Sensory: Normal - Psychological Associated symptoms: Normal affect, Normal mood - Skin Skin Temperature: Warm Skin Moisture: Dry Skin Color: Normal Course - Re-evaluation Re-evalutation: 12/01/17 16:41 This is a relatively well-appearing 37-year-old male in no acute distress. History of worsening abdominal pain and diarrhea now with blood. Likely this is some sort of inflammatory bowel disease like ulcerative colitis versus Crohn' s disease. Denies any extra abdominal manifestations. Labs are fairly unremarkable. 12/01/17 17:39 This is a well-appearing male in no acute distress. Good color. Normal H&H. Slightly elevated WBC count but this appears to be chronic. Chronically elevated liver function studies. Occult blood negative. Had a CT scan a few weeks ago which did not show any major pathology so unlikely we would see anything by repeat CT scan. I am going to give him strict instructions with regards to outpatient follow-up care. Patient will need to have a colonoscopy to have this evaluated. Patient verbalized understanding of instructions. Patient verbalized understanding that if he developed black tarry stools, bright red blood, maroon colored stools, worsening pain, passing out, feeling weak or for any other concerns he needs to return immediately. Rectal exam was performed. No bright red blood or tarry looking stool. Unable to perform endoscopy as there is no anoscope available in the hospital. he was advised that he needs good close follow-up. 12/01/17 18:25 12/01/17 18:30 - Vital Signs Vital signs: Temp Pulse Resp BP Pulse Ox 98.5 F 125 H 16 153/95 H 98 12/01/17 14:21 12/01/17 14:21 12/01/17 14:21 12/01/17 14:21 12/01/17 14:21 - Laboratory Result Diagrams: 12/01/17 16:01 12/01/17 16:01 Laboratory results interpreted by me: 12/01/17 12/01/17 16:01 16:01 WBC 11.1 H RBC 5.66 H Hgb 17.4 H Eosinophils % 6.6 H Absolute Eosinophils 0.7 H Glucose 157 H AST 95 H ALT 206 H Total Protein 8.3 H Discharge - Discharge Clinical Impression: Bloody diarrhea Condition: Good Disposition: HOME, SELF-CARE Instructions: Rectal Bleeding, Unclear Cause ([facility]), Diarrhea, Nonspecific ([facility]) Additional Instructions: A list of specialists has been provided. Please follow-up as a colonoscopy is in order at this time. You may have some sort of chronic bowel disease which will need to be evaluated. Your CT scan performed a few weeks ago was unremarkable. Your physical exam today was fairly unremarkable. In the event that you develop any worsening bleeding, worsening pain, black tarry looking stools, passing out or other concerns you should return immediately. Prescriptions: Hydrocodone/Acetaminophen [[place] 5-325 mg Tablet] 1 tab PO TID PRN 4 Days #12 tablet PRN Reason: Referrals: MERRY WINTER MD [Primary Care Provider] - Follow up as needed
[2017-12-01 16:32] LABS: ABSOLUTE BASOPHILS # (AUTO) 0.1 10^3/uL (0.0-0.2); ABSOLUTE EOSINOPHILS # (AUTO) 0.7 10^3/uL (0.0-0.6); ABSOLUTE LYMPHOCYTES (AUTO) 3.1 10^3/uL (0.5-4.7); ABSOLUTE MONOCYTES (AUTO) 0.7 10^3/uL (0.1-1.4); ABSOLUTE NEUT (AUTO) 6.3 10^3/uL (1.7-8.2); BASOPHILS % (AUTO) 0.8 % (0-2); EOSINOPHILS % (AUTO) 6.6 % (0-6); HEMATOCRIT 50.4 % (37.9-51.0); HEMOGLOBIN 17.4 g/dL (13.5-17.0); LYMPHOCYTES % (AUTO) 28.4 % (13-45); MEAN CORPUSCULAR HEMOGLOBIN 30.7 pg (27.0-33.4); MEAN CORPUSCULAR HGB CONC 34.5 g/dL (32.0-36.0); MEAN CORPUSCULAR VOLUME 89 fl (80-97); MONOCYTES % (AUTO) 6.7 % (3-13); PLATELET COUNT 296 10^3/uL (150-450); RED BLOOD COUNT 5.66 10^6/uL (4.35-5.55); RED CELL DISTRIBUTION WIDTH 13.7 % (11.5-14.0); SEGMENTED NEUTROPHILS % (AUTO) 57.5 % (42-78); TOTAL CELLS COUNTED % (AUTO) 100 %; WHITE BLOOD COUNT 11.1 10^3/uL (4.0-10.5)
[2017-12-01 16:49] LABS: ALANINE AMINOTRANSFERASE 206 U/L (21-72); ALKALINE PHOSPHATASE 111 U/L (38-126); ANION GAP 16 (5-19); ASPARTATE AMINO TRANSFERASE 95 U/L (17-59); BILIRUBIN,DIRECT 0.4 mg/dL (0.0-0.4); BILIRUBIN,TOTAL 0.5 mg/dL (0.2-1.3); BLOOD UREA NITROGEN 15 mg/dL (7-20); CALCIUM 9.9 mg/dL (8.4-10.2); CARBON DIOXIDE 25 mmol/L (22-30); CHLORIDE 102 mmol/L (98-107); GLUCOSE 157 mg/dL (75-110); LIPASE 110.3 U/L (23-300); POTASSIUM 4.8 mmol/L (3.6-5.0); SODIUM 143.4 mmol/L (137-145); TOTAL PROTEIN 8.3 g/dL (6.3-8.2)
[2017-12-01 19:31] VITALS: BP 123/78
== END 2017-12-01 20:00 | disposition home or self-care (01) ==
LOC: ER 14:17
DX: K92.1 Melena (principal); F17.200 Nicotine dependence, unspecified, uncomplicated; R10.9 Unspecified abdominal pain; I10 Essential (primary) hypertension; E11.9 Type 2 diabetes mellitus without complications; Z90.49 Acquired absence of other specified parts of digestive tract
CPT/HCPCS: 99284; 96360; 36415; 83690; 85025; 82272; 80053; 83605; J7030

== ENCOUNTER 2018-01-26 15:09 | Emergency (ER) | payer BC ==
[2018-01-26] MEDS ORDERED: METOCLOPRAMIDE HCL INJ/PF 10 MG/2 ML SDV IV ONE (16:53)
[2018-01-26] MEDS ORDERED: KETOROLAC TROMETHAMINE INJ/PF 30 MG/1 ML SDV IV ONE (16:53)
[2018-01-26] MEDS ORDERED: DIPHENHYDRAMINE HCL 50 MG/ML VIAL IV ONE (16:53)
--- NOTE | 2018-01-26 16:57 | ER Document Report ---
ED Headache - General Chief Complaint: Headache Stated Complaint: HEAD ACHE Time Seen by Provider: 01/26/18 16:53 Notes: The patient is a 37-year-old male, past medical history migraines, presents with 3 days of his usual left-sided migraine. He says that Stadol usually helps his migraine, but he ran out and his neurologist, Dr. Davis, is in the hospital and is unable to refill his prescriptions. He takes amitriptyline and Neurontin without much relief of his headache. Denies blurry vision, fevers , neck stiffness, focal weakness, numbness, tingling, difficulty swallowing, chest pain or shortness of breath. TRAVEL OUTSIDE OF THE [place] IN LAST 30 DAYS: No - Related Data Allergies/Adverse Reactions: No Known Allergies Allergy (Verified 12/01/17 14:17) Past Medical History - General Information source: Patient - Social History Smoking Status: Unknown if Ever Smoked Family History: Reviewed & Not Pertinent, CAD - Past Medical History Cardiac Medical History: Reports: Hx Hypertension - WITH PAIN Denies: Hx Coronary Artery Disease, Hx Heart Attack Pulmonary Medical History: Denies: Hx Asthma, Hx Bronchitis, Hx COPD, Hx Pneumonia Neurological Medical History: Reports: Hx Migraine. Denies: Hx Cerebrovascular Accident, Hx Seizures Endocrine Medical History: Reports: Hx Diabetes Mellitus Type 2 Renal/ Medical History: Denies: Hx Peritoneal Dialysis Musculoskeltal Medical History: Denies Hx Arthritis Past Surgical History: Reports: Hx Abdominal Surgery - hernia x2, Hx Appendectomy, Hx Cholecystectomy, Hx Inguinal Hernia - Right-sided - Immunizations Immunizations up to date: Yes Hx Diphtheria, Pertussis, Tetanus Vaccination: Yes Review of Systems - Review of Systems Notes: REVIEW OF SYSTEMS: CONSTITUTIONAL: -fevers, -chills EENT: -eye pain, -difficulty swallowing, -nasal congestion CARDIOVASCULAR: -chest pain, -syncope. RESPIRATORY: -cough, -SOB GASTROINTESTINAL: -abdominal pain, -nausea, -vomiting, -diarrhea GENITOURINARY: -dysuria, -hematuria MUSCULOSKELETAL: -back pain, -neck pain SKIN: -rash or skin lesions. HEMATOLOGIC: -easy bruising or bleeding. LYMPHATIC: -swollen, enlarged glands. NEUROLOGICAL: -altered mental status or loss of consciousness, +headache, - neurologic symptoms PSYCHIATRIC: -anxiety, -depression. ALL OTHER SYSTEMS REVIEWED AND NEGATIVE. Physical Exam - Vital signs Vitals: Temp Pulse Resp BP Pulse Ox 99.3 F 134 H 17 136/85 H 98 01/26/18 15:14 01/26/18 15:14 01/26/18 15:14 01/26/18 15:14 01/26/18 15:14 - Notes Notes: PHYSICAL EXAMINATION: GENERAL: Well-appearing, well-nourished and in no acute distress. HEAD: Atraumatic, normocephalic. EYES: Pupils equal round and reactive to light, extraocular movements intact, sclera anicteric, conjunctiva are normal. ENT: nares patent, oropharynx clear without exudates. Moist mucous membranes. NECK: Normal range of motion, supple without lymphadenopathy LUNGS: Breath sounds clear to auscultation bilaterally and equal. No wheezes rales or rhonchi. HEART: Tachycardia, regular rhythm. ABDOMEN: Soft, nontender, normoactive bowel sounds. No guarding, no rebound. No masses appreciated. EXTREMITIES: Normal range of motion, no pitting or edema. No cyanosis. NEUROLOGICAL: Cranial nerves grossly intact. Normal speech, normal gait. Normal sensory and motor exams. PSYCH: Normal mood, normal affect. SKIN: Warm, Dry, normal turgor, no rashes or lesions noted. Course - Re-evaluation Re-evalutation: Patient's headache is exactly the same as his prior headaches. He ran out of his Stadol and is unable to refill it due to his neurologist being hospitalized. Will attempt a headache cocktail and sphenopalatine ganglion black to help with his headache. No Stadol at [facility] and unable to refill narcotics for chronic pain due to [facility]'s Narcotic policy in the ER. 01/26/18 19:43 Pt's headache has improved and his tachycardia also improved. Symptoms are not typical for SAH, ICH or meningitis at this time. Instructed him to follow-up with his regular physician and neurologist for further evaluation and treatment. - Vital Signs Vital signs: Temp Pulse Resp BP Pulse Ox 99.3 F 134 H 17 136/85 H 98 01/26/18 15:14 01/26/18 15:14 01/26/18 15:14 01/26/18 15:14 01/26/18 15:14 Discharge - Discharge Clinical Impression: Chronic headache Qualifiers: Headache type: unspecified Intractability: not intractable Qualified Code(s): R51 - Headache Condition: Stable Disposition: HOME, SELF-CARE Additional Instructions: HEADACHE: The physician does not feel that the headache you are experiencing has a serious underlying cause. Most headaches are due to emotional stress, with resultant muscle tension (tension headache). Occasionally, headaches are secondary to changes in the blood vessels of the scalp (vascular headache and migraine headache). Sometimes, a headache is the first symptom of another developing illness, such as a viral infection. You have no evidence of stroke, bleeding, meningitis, or other serious cause of your headache. The treatment of headaches varies with the severity and cause of the pain. Not all headaches need pain shots. In fact, there is evidence that using narcotics for headaches may make them worse in the long run. The physician will determine the therapy that's in your best interest. If you develop a fever, if the headache is different from any you've previously experienced, or if the headache progressively worsens, then call your physician at once or go to the emergency room. REGLAN (METOCLOPRAMIDE): Reglan has been prescribed. This medicine affects the stomach and intestines. It can be used to treat nausea and vomiting, to prevent reflux of stomach acid up into the esophagus, or to increase the contractions of the stomach and intestines. It is often prescribed for esophagitis, and for paralysis of the stomach in diabetics. Reglan can cause either mild restlessness or drowsiness. You should contact the doctor at once if you become extremely restless, anxious, or cannot sleep, or if you develop uncontrollable motions of the lips, tongue, or jaw. Do not take alcohol with this medicine. Do not drive or operate machinery until you have been taking this medicine long enough to know how it affects you. Call the doctor if you develop abdominal pains, lightheadedness, black stool, or blood in the stool or vomitus. USE OF DIPHENHYDRAMINE: Diphenhydramine (Benadryl) is an antihistamine and has been recommended to help treat your headache and to prevent side effects of other medications used to treat headaches. The medication can be repeated four times daily. Age Elixir (12.5 mg/tsp) 25 mg pill adult 1-2 tabs Antihistamines may cause drowsiness, especially with the first dose. Do not operate machinery or drive while under the effects of the medication. Do not combine the medication with alcohol, or with any other medication without talking to your doctor. TORADOL INJECTION: You have been given an injection of ketorolac tromethamine (Toradol). This is an excellent, safe drug for pain control. It also has potent antiinflammatory action. You should have significant pain relief within about one hour. Toradol is not addicting and is non-sedating. It does not interfere with driving or work. Call or return if you develop itching, hives, shortness of breath, or rash. FOLLOW-UP CARE: If you have been referred to a physician for follow-up care, call the physician s office for an appointment as you were instructed or within the next two days. If you experience worsening or a significant change in your symptoms, notify the physician immediately or return to the Emergency Department at any time for re-evaluation. Forms: Elevated Blood Pressure Referrals: MERRY WINTER MD [Primary Care Provider] - Follow up as needed LYNN DURHAM MD [NO LOCAL MD] - Follow up as needed
[2018-01-26] MEDS ORDERED: DEXAMETHASONE SOD PHOS INJ 10 MG/1 ML VIAL IV ONE (16:58)
[2018-01-26] MEDS ORDERED: BUPIVACAINE HCL 0.5 % INJ/PF 30 ML SDV INJ ONE (17:08)
[2018-01-26] MEDS: NORMAL SALINE 1000 ML 1,000 ML IV PRN ×2 (17:17→17:18)
[2018-01-26] MEDS ORDERED: KETAMINE HCL INJ 500 MG/10 ML VIAL IV ONE (18:09)
[2018-01-26 20:17] VITALS: BP 132/94
== END 2018-01-26 20:17 | disposition home or self-care (01) ==
LOC: ER 15:09
DX: G43.909 Migraine, unspecified, not intractable, without status migrainosus (principal); I10 Essential (primary) hypertension; E11.9 Type 2 diabetes mellitus without complications
CPT/HCPCS: 99283; 96361; 96374; 96375; J1200; J3490; J1885; J2765; J7030; J1100

== ENCOUNTER 2018-03-23 11:55 | Day surgery (SDC) | payer BC ==
--- NOTE | 2018-03-16 09:56 | EKG REPORT ---
SEVERITY:- NORMAL ECG - SINUS RHYTHM : Confirmed by: Crystal Frausto MD 16-Mar-2018 09:56:04
[2018-03-16 10:59] LABS: ABSOLUTE BASOPHILS # (AUTO) 0.1 10^3/uL (0.0-0.2); ABSOLUTE EOSINOPHILS # (AUTO) 0.7 10^3/uL (0.0-0.6); ABSOLUTE LYMPHOCYTES (AUTO) 3.4 10^3/uL (0.5-4.7); ABSOLUTE MONOCYTES (AUTO) 0.9 10^3/uL (0.1-1.4); ABSOLUTE NEUT (AUTO) 6.4 10^3/uL (1.7-8.2); BASOPHILS % (AUTO) 0.5 % (0-2); HEMATOCRIT 46.7 % (37.9-51.0); HEMOGLOBIN 16.5 g/dL (13.5-17.0); LYMPHOCYTES % (AUTO) 29.8 % (13-45); MEAN CORPUSCULAR HEMOGLOBIN 31.5 pg (27.0-33.4); MEAN CORPUSCULAR HGB CONC 35.4 g/dL (32.0-36.0); MEAN CORPUSCULAR VOLUME 89 fl (80-97); MONOCYTES % (AUTO) 8.2 % (3-13); PLATELET COUNT 306 10^3/uL (150-450); RED BLOOD COUNT 5.25 10^6/uL (4.35-5.55); RED CELL DISTRIBUTION WIDTH 13.3 % (11.5-14.0); SEGMENTED NEUTROPHILS % (AUTO) 55.5 % (42-78); TOTAL CELLS COUNTED % (AUTO) 100 %; WHITE BLOOD COUNT 11.5 10^3/uL (4.0-10.5)
[2018-03-16 11:29] LABS: ANION GAP 16 (5-19); BLOOD UREA NITROGEN 22 mg/dL (7-20); CALCIUM 10.3 mg/dL (8.4-10.2); CARBON DIOXIDE 26 mmol/L (22-30); CHLORIDE 102 mmol/L (98-107); GLUCOSE 93 mg/dL (75-110); POTASSIUM 4.7 mmol/L (3.6-5.0); SODIUM 143.8 mmol/L (137-145)
[~2018-03-23 11:55] MED LIST changes: -BACITRACIN INJ 50,000 UNIT VIAL ONE; -BUPIVACAINE HCL 0.25 % INJ/PF (2.5 MG/1 ML) 30 ML VIAL ONE; -CEFAZOLIN 1 GM/D5W RTU 1 GM/50 ML RTUPB IV PRN; -LIDOCAINE 0.5% INJ-PF (5 MG/ML) 50 ML SDV ONE
[2018-03-23] MEDS ORDERED: METOCLOPRAMIDE HCL INJ/PF 10 MG/2 ML SDV ONE (12:47)
[2018-03-23] MEDS ORDERED: ALBUTEROL SULFATE 0.083% NEB 2.5 MG/3 ML AMPUL NEB ONE (12:47)
[2018-03-23] MEDS ORDERED: FAMOTIDINE INJ/PF 20 MG/2 ML SDV IV ONE (12:48)
[2018-03-23] MEDS ORDERED: PROPOFOL INJ 200 MG/20 ML VIAL IV ONE ×2 (13:00)
[2018-03-23] MEDS ORDERED: MIDAZOLAM 2 MG/2 ML INJ ONE (13:00)
[2018-03-23] MEDS ORDERED: FENTANYL CITRATE INJ/PF 100 MCG/2 ML AMPUL ONE (13:00)
[2018-03-23] MEDS ORDERED: LIDOCAINE 2% JELLY 30 ML TUBE ONE (13:10)
[2018-03-23] MEDS ORDERED: BUPIVACAINE INJ/PF LIPOSOME/PF 266 MG/20 ML SDV ONE (13:11)
[2018-03-23] MEDS ORDERED: OXYCODONE-ACETAMINOPHEN 5-325 MG TABLET PO PRN ×2 (13:25)
[2018-03-23] MEDS ORDERED: PROMETHAZINE HCL INJ 25 MG/1 ML VIAL IV PRN ×2 (13:25)
[2018-03-23] MEDS ORDERED: FENTANYL CITRATE INJ/PF 100 MCG/2 ML AMPUL IV PRN ×3 (13:25)
[2018-03-23] MEDS ORDERED: DIPHENHYDRAMINE HCL 50 MG/ML VIAL IV PRN (13:25)
[2018-03-23] MEDS: FENTANYL CITRATE INJ/PF 100 MCG/2 ML AMPUL ONE ×2 (14:00→14:10)
--- NOTE | 2018-03-23 14:12 | Discharge Summary ---
Discharge Summary (SDC) - Discharge Final Diagnosis: #1 internal hemorrhoids. #2 posterior anal fissure Date of Surgery: 03/23/18 Discharge Date: 03/23/18 Condition: Stable Treatment or Instructions: Discharge home. Diet as tolerated. Activity: Nonstrenuous. Fiber supplements twice daily. Stool softeners twice daily. 5% lidocaine ointment to rectum 3 times daily. Follow-up with me in 2 weeks. Referrals: MERRY WINTER MD [Primary Care Provider] - Discharge Diet: As Tolerated Respiratory Treatments at Home: Deep Breathing/Coughing, Incentive Spirometer Discharge Activity: Slowly Increase Activity Home Care Assistance: None Needed Report the Following to Your Physician Immediately: Shortness of Breath, Nausea , Vomiting, Increase in Pain, Redness, Swelling, Warmth, Increased Soreness
--- NOTE | 2018-03-23 14:17 | Operative Report ---
Nonrecallable Operative Report DATE OF SURGERY: 03/23/18 PREOPERATIVE DIAGNOSIS: 1. Rectal bleeding. 2. Anal pain. POSTOPERATIVE DIAGNOSIS: 1. Large internal hemorrhoids. 2. Large posterior anal fissure OPERATION: 1. Rectal exam under anesthesia. 2. Rubber band ligation of internal hemorrhoids SURGEON: JESSY MCCRAY ANESTHESIA: LMAC TISSUE REMOVED OR ALTERED: None COMPLICATIONS: None apparent ESTIMATED BLOOD LOSS: Minimal PROCEDURE: Procedure in detail: After informed consent was obtained, the patient was brought into the operating room and laid in the right lateral decubitus position. An anoscope was inserted into the rectum. There were noted to be enlarged hemorrhoids in the right anterior, right posterior, and left lateral hemorrhoid columns. There was also a very large posterior anal fissure identified. The rubber band ligation device was used to encircle hemorrhoids in the right anterior right posterior and left lateral columns. 2 bands were placed in the right posterior position, 2 bands were placed in the left lateral position, and 1 band was placed in the right anterior position. Once this was completed, the procedure was concluded. All sponge, instrument, and needle counts were correct 2. Condition: Stable. Recommendation: Continue with lidocaine ointment, nitroglycerin ointment, stool softeners, and fiber. Follow-up with me in 2 weeks.
[2018-03-23] MEDS ORDERED: KETOROLAC TROMETHAMINE INJ/PF 30 MG/1 ML SDV ONE (14:37)
[2018-03-23 15:50] VITALS: BP 127/87
== END 2018-03-23 15:45 | disposition home or self-care (01) ==
LOC: OROUT 11:55
PROVIDERS: ATTEND Surgery
DX: K64.8 Other hemorrhoids (principal); K60.2 Anal fissure, unspecified; F17.210 Nicotine dependence, cigarettes, uncomplicated; I10 Essential (primary) hypertension; E11.9 Type 2 diabetes mellitus without complications; E66.9 Obesity, unspecified; G47.30 Sleep apnea, unspecified; K76.0 Fatty (change of) liver, not elsewhere classified; Z79.899 Other long term (current) drug therapy; Z79.84 Long term (current) use of oral hypoglycemic drugs; Z68.32 Body mass index [BMI] 32.0-32.9, adult
CPT/HCPCS: 93005; 36415; 82962; 85025; 80048; 93010; 46221; J2250; J3010; J1885; J2765; J2704; S0028; C9290; 902

== ENCOUNTER 2018-05-03 23:21 | Emergency (ER) | payer BC ==
[2018-05-04 00:12] LABS: ABSOLUTE BASOPHILS # (AUTO) 0.1 10^3/uL (0.0-0.2); ABSOLUTE EOSINOPHILS # (AUTO) 0.7 10^3/uL (0.0-0.6); ABSOLUTE LYMPHOCYTES (AUTO) 4.3 10^3/uL (0.5-4.7); ABSOLUTE MONOCYTES (AUTO) 1.1 10^3/uL (0.1-1.4); ABSOLUTE NEUT (AUTO) 8.1 10^3/uL (1.7-8.2); BASOPHILS % (AUTO) 0.8 % (0-2); EOSINOPHILS % (AUTO) 5.1 % (0-6); HEMATOCRIT 48.8 % (37.9-51.0); HEMOGLOBIN 16.8 g/dL (13.5-17.0); LYMPHOCYTES % (AUTO) 30.1 % (13-45); MEAN CORPUSCULAR HGB CONC 34.4 g/dL (32.0-36.0); MEAN CORPUSCULAR VOLUME 90 fl (80-97); MONOCYTES % (AUTO) 7.7 % (3-13); PLATELET COUNT 343 10^3/uL (150-450); RED BLOOD COUNT 5.42 10^6/uL (4.35-5.55); RED CELL DISTRIBUTION WIDTH 13.2 % (11.5-14.0); SEGMENTED NEUTROPHILS % (AUTO) 56.3 % (42-78); TOTAL CELLS COUNTED % (AUTO) 100 %; WHITE BLOOD COUNT 14.4 10^3/uL (4.0-10.5)
[2018-05-04 00:28] LABS: APPEARANCE,URINE SLIGHTLY-CLOUDY; BILIRUBIN,URINE NEGATIVE (NEGATIVE); COLOR,URINE STRAW; GLUCOSE, URINE NEGATIVE (NEGATIVE); KETONES,URINE NEGATIVE (NEGATIVE); LEUKOCYTE ESTERASE,URINE NEGATIVE (NEGATIVE); NITRITE,URINE NEGATIVE (NEGATIVE); PROTEIN,URINE NEGATIVE (NEGATIVE); URINE SPECIFIC GRAVITY 1.012; UROBILINOGEN,URINE NEGATIVE mg/dL (<2.0)
[2018-05-04 00:39] LABS: ALANINE AMINOTRANSFERASE 45 U/L (21-72); ALBUMIN 4.7 g/dL (3.5-5.0); ALKALINE PHOSPHATASE 94 U/L (38-126); ANION GAP 11 (5-19); ASPARTATE AMINO TRANSFERASE 45 U/L (17-59); BILIRUBIN,DIRECT 0.3 mg/dL (0.0-0.4); BILIRUBIN,TOTAL 0.4 mg/dL (0.2-1.3); BLOOD UREA NITROGEN 16 mg/dL (7-20); CALCIUM 9.7 mg/dL (8.4-10.2); CARBON DIOXIDE 27 mmol/L (22-30); CHLORIDE 103 mmol/L (98-107); GLUCOSE 105 mg/dL (75-110); LIPASE 441.4 U/L (23-300); SODIUM 140.9 mmol/L (137-145); TOTAL PROTEIN 8.5 g/dL (6.3-8.2)
[2018-05-04] MEDS ORDERED: MORPHINE SULFATE 10 MG/ML INJ IV PRN (01:15)
[2018-05-04] MEDS ORDERED: ONDANSETRON HCL INJ/PF 4 MG/2 ML SDV IV ONE (01:15)
[2018-05-04] MEDS ORDERED: NORMAL SALINE 1000 ML 1,000 ML IV ONE (01:15)
[2018-05-04] MEDS ORDERED: METRONIDAZOLE 500 MG TABLET PO ONE (01:15)
[2018-05-04] MEDS ORDERED: KETOROLAC TROMETHAMINE INJ/PF 30 MG/1 ML SDV IV ONE (01:15)
[2018-05-04] MEDS ORDERED: CIPROFLOXACIN HCL 500 MG TABLET PO ONE (01:15)
--- NOTE | 2018-05-04 01:18 | ER Document Report ---
ED General - General Chief Complaint: Abdominal Pain Stated Complaint: FLANK PAIN Time Seen by Provider: 05/03/18 23:56 Notes: Patient is a 37-year-old male with a past surgical history of a cholecystectomy , appendectomy, prior bilateral inguinal hernia repairs who presents with 3 days of progressively worsening left lower quadrant abdominal pain. The patient describes it now as a dull, throbbing, constant, aching pain to the area. Nothing improves or worsens the pain. He denies a history of similar symptoms in the past. He denies associated fever or constitutional symptoms. He has not seen his general doctor regarding today's concerns. He has not had vomiting or diarrhea. TRAVEL OUTSIDE OF THE [place] IN LAST 30 DAYS: No - Related Data Allergies/Adverse Reactions: No Known Allergies Allergy (Verified 05/04/18 00:07) Past Medical History - General Information source: Patient - Social History Smoking Status: Current Every Day Smoker Chew tobacco use (# tins/day): No Frequency of alcohol use: None Drug Abuse: None Lives with: Spouse/Significant other Family History: Reviewed & Not Pertinent, CAD Patient has suicidal ideation: No Patient has homicidal ideation: No - Past Medical History Cardiac Medical History: Reports: Hx Hypertension - ON MEDS Denies: Hx Coronary Artery Disease, Hx Heart Attack Pulmonary Medical History: Denies: Hx Asthma, Hx Bronchitis, Hx COPD, Hx Pneumonia Neurological Medical History: Reports: Hx Migraine. Denies: Hx Cerebrovascular Accident, Hx Seizures Endocrine Medical History: Reports: Hx Diabetes Mellitus Type 2 Renal/ Medical History: Denies: Hx Peritoneal Dialysis Musculoskeletal Medical History: Denies Hx Arthritis Past Surgical History: Reports: Hx Abdominal Surgery - hernia x2, Hx Appendectomy, Hx Cholecystectomy, Hx Inguinal Hernia - Right-sided - Immunizations Immunizations up to date: Yes Hx Diphtheria, Pertussis, Tetanus Vaccination: Yes Review of Systems - Review of Systems Notes: Constitutional: Negative for fever. HENT: Negative for sore throat. Eyes: Negative for visual changes. Cardiovascular: Negative for chest pain. Respiratory: Negative for shortness of breath. Gastrointestinal: Positive for abdominal pain nausea Genitourinary: Negative for dysuria. Musculoskeletal: Negative for back pain. Skin: Negative for rash. Neurological: Negative for headaches, weakness or numbness. 10 point ROS negative except as marked above and in HPI. Physical Exam - Vital signs Vitals: Temp Pulse Resp BP Pulse Ox 98.9 F 129 H 16 137/82 H 98 05/03/18 23:21 05/03/18 23:21 05/03/18 23:21 05/03/18 23:21 05/03/18 23:21 Notes: PHYSICAL EXAMINATION: GENERAL: Well-appearing, well-nourished and in no acute distress. HEAD: Atraumatic, normocephalic. EYES: Pupils equal round and reactive to light, extraocular movements intact, sclera anicteric, conjunctiva are normal. ENT: nares patent, oropharynx clear without exudates. Moist mucous membranes. NECK: Normal range of motion, supple without lymphadenopathy LUNGS: Breath sounds clear to auscultation bilaterally and equal. No wheezes rales or rhonchi. HEART: Regular tachycardia without murmurs ABDOMEN: Soft, aching pain to the left lower quadrant but no other localized areas of tenderness, normoactive bowel sounds. No guarding, no rebound. No masses appreciated. EXTREMITIES: Normal range of motion, no pitting or edema. No cyanosis. NEUROLOGICAL: No focal neurological deficits. Moves all extremities spontaneously and on command. PSYCH: Normal mood, normal affect. SKIN: Warm, Dry, normal turgor, no rashes or lesions noted. Course - Re-evaluation Re-evalutation: 05/04/18 01:14 Patient presents with 3-4 days of progressively worsening left lower quadrant abdominal pain. Laboratories show a mild leukocytosis. Vitals do show mild tachycardia. This improved after receiving IV fluids and pain control. The patient's abdominal exam is quite benign, only focal area of tenderness is to the left lower quadrant. There is no rebound or guarding. Clinical history and exam are most consistent with acute diverticulitis. I have a very low clinical suspicion for any alternative life any pathology. Patient has a ready have an appendectomy, cholecystectomy, bilateral hernia repair. Initially the plan was to avoid CT imaging although patient remained persistently tachycardic and we will therefore proceed with CT imaging to further clarify for evidence of perforation or abscess 05/04/18 03:11 CT abdomen pelvis unremarkable. Given patient's location of pain will empirically treat for diverticulitis. At this time will discharge with return precautions and follow-up recommendations. Verbal discharge instructions given a the bedside and opportunity for questions given. Medication warnings reviewed. Patient is in agreement with this plan and has verbalized understanding of return precautions and the need for primary care follow-up in the next 24-72 hours. - Vital Signs Vital signs: Temp Pulse Resp BP Pulse Ox 98.2 F 108 H 16 114/69 97 05/04/18 02:05 05/04/18 02:05 05/04/18 02:05 05/04/18 02:05 05/04/18 02:00 - Laboratory Result Diagrams: 05/03/18 23:57 05/03/18 23:57 Laboratory results interpreted by me: 05/03/18 05/03/18 23:57 23:57 WBC 14.4 H Absolute Eosinophils 0.7 H Total Protein 8.5 H Lipase 441.4 H - Diagnostic Test Radiology reviewed: Reports reviewed Discharge - Discharge Clinical Impression: Diverticulitis, Abdominal pain, left lower quadrant Condition: Good Disposition: HOME, SELF-CARE Additional Instructions: You were seen today for focal pain in your left lower quadrant. Your labs, exam , and imaging suggest a diagnosis of diverticulitis. This is an inflammation of a part of your colon. You are being started on antibiotics to treat this infection and inflammation. Please take all of them as directed and complete them even if your symptoms resolve. Please follow-up with your primary care physician within the next 48 hours. Return to the emergency department immediately if you develop worsening pain, persistent vomiting, began having bloody stools, develop a fever of greater than 101F, or have any other symptoms that are concerning to you. Prescriptions: Morphine Sulfate [Morphine Ir 15 mg Tablet] 15 mg PO Q6HP PRN #6 tab PRN Reason: Ciprofloxacin HCl [Cipro 500 mg Tablet] 500 mg PO BID #20 tablet Metronidazole [Flagyl 500 mg Tablet] 500 mg PO Q6H #40 tablet Referrals: MERRY WINTER MD [Primary Care Provider] - Follow up tomorrow
[2018-05-04 02:12] VITALS: BP 114/69
--- NOTE | 2018-05-04 02:49 | RADIOLOGY REPORT (SQ) ---
EXAM DESCRIPTION: CT ABDOMEN PELVIS WITH IV CONTRAST COMPLETED DATE/TME: 05/04/2018 02:11 CLINICAL HISTORY: 37 years, Male, llq pain, tachycardia COMPARISON: 11/19/2017 TECHNIQUE: CT images were obtained from the lung bases down to the pubic symphysis after the administration of IV contrast. Sagittal and coronal reformats were performed. DLP 1350 Images stored on PACS. All CT scanners at this facility use dose modulation, iterative reconstruction, and/or weight based dosing when appropriate to reduce radiation dose to as low as reasonably achievable (ALARA). [facility]: Dose Right [facility]: CareDose [facility]: Dose Right [facility]: Teradose 4D [facility]: [email or web address] LIMITATIONS: None. FINDINGS: Lung bases are clear. Cholecystectomy. The liver, pancreas, spleen, adrenal glands, and kidneys appear normal. No hydronephrosis. There is no intraperitoneal free air or fluid. There is no lymphadenopathy. The stomach, small bowel, and colon are unremarkable. The appendix is not uniquely identified, however there are no inflammatory changes within the right lower quadrant. The abdominal aorta is normal in caliber. The urinary bladder and prostate gland appear unremarkable. There are no lytic or blastic bone lesions. IMPRESSION: No acute findings. TECHNICAL DOCUMENTATION: Quality ID # [id number]: Final reports with documentation of one or more dose reduction techniques (e.g., Automated exposure control, adjustment of the mA and/or kV according to patient size, use of iterative reconstruction technique) 2010 [employer]- All Rights Reserved
== END 2018-05-04 03:15 | disposition home or self-care (01) ==
LOC: ER 23:21
DX: K57.92 Diverticulitis of intestine, part unspecified, without perforation or abscess without bleeding (principal); R10.32 Left lower quadrant pain; R00.0 Tachycardia, unspecified; I10 Essential (primary) hypertension; E11.9 Type 2 diabetes mellitus without complications; F17.200 Nicotine dependence, unspecified, uncomplicated; Z90.49 Acquired absence of other specified parts of digestive tract
CPT/HCPCS: 99284; 96361; 96374; 96375; 36415; 83690; 85025; 80053; 81001; 74177; J1885; J2270; J2405

== ENCOUNTER 2018-12-26 11:05 | Emergency (ER) | payer BC ==
--- NOTE | 2018-12-26 11:21 | EKG REPORT ---
SEVERITY:- NORMAL ECG - SINUS RHYTHM : Confirmed by: Abdifatah Monge 26-Dec-2018 11:21:12
[2018-12-26] MEDS ORDERED: ASPIRIN 81 MG TABLET, CHEWABLE PO ONE (11:58)
--- NOTE | 2018-12-26 11:59 | ER Document Report ---
ED Medical Screen (RME) - General Chief Complaint: Chest Pain Stated Complaint: CHEST PAIN Time Seen by Provider: 12/26/18 11:51 Primary Care Provider: MERRY WINTER MD [Primary Care Provider] - Follow up as needed Mode of Arrival: Ambulatory Information source: Patient TRAVEL OUTSIDE OF THE [place] IN LAST 30 DAYS: No - HPI Patient complains to provider of: MACARIO Notes: 12/26/18 11:58 Patient here with complaint of chest pain. The patient states that he has had some squeezing sensation in his chest intermittently since yesterday. No shortness of breath. Currently wearing a Holter monitor due to some tachycardia problems. He denies any recent long trips or surgeries, leg pain or leg swelling, cancer, history of DVT or PE. He does have a history of hypertension, high cholesterol, diabetes, smoking. He has no known CAD. Exam nontoxic, no distress. Lungs clear and equal throughout. Heart sounds normal. Plan CBC, CMP, CPK, CK-MB, troponin, EKG, chest x-ray, TSH, magnesium. An initial examination was made on the patient as part of the triage process, and it was determined a more comprehensive evaluation was necessary. Initial labs were ordered and patient was transferred to another provider in the ED who assumed care and finished evaluation and plan. - Related Data Allergies/Adverse Reactions: No Known Allergies Allergy (Verified 12/26/18 11:06) Past Medical History - Past Medical History Cardiac Medical History: Reports: Hx Hypertension - ON MEDS Denies: Hx Coronary Artery Disease, Hx Heart Attack Pulmonary Medical History: Denies: Hx Asthma, Hx Bronchitis, Hx COPD, Hx Pneumonia Neurological Medical History: Reports: Hx Migraine. Denies: Hx Cerebrovascular Accident, Hx Seizures Endocrine Medical History: Reports: Hx Diabetes Mellitus Type 2 Renal/ Medical History: Denies: Hx Peritoneal Dialysis Musculoskeltal Medical History: Denies Hx Arthritis Past Surgical History: Reports: Hx Abdominal Surgery - hernia x2, Hx Appendectomy, Hx Cholecystectomy, Hx Inguinal Hernia - Right-sided - Immunizations Immunizations up to date: Yes Hx Diphtheria, Pertussis, Tetanus Vaccination: Yes History of Influenza Vaccine for 05/2017 - 10/2017 Season: No Physical Exam - Vital signs Vitals: Temp Pulse Resp BP Pulse Ox 98.2 F 91 18 148/96 H 97 12/26/18 11:22 12/26/18 11:22 12/26/18 11:22 12/26/18 11:22 12/26/18 11:22 Course - Vital Signs Vital signs: Temp Pulse Resp BP Pulse Ox 98.2 F 91 18 148/96 H 97 12/26/18 11:22 12/26/18 11:22 12/26/18 11:22 12/26/18 11:22 12/26/18 11:22 Doctor's Discharge - Discharge Referrals: MERRY WINTER MD [Primary Care Provider] - Follow up as needed
--- NOTE | 2018-12-26 12:34 | RADIOLOGY REPORT (SQ) ---
EXAM DESCRIPTION: CHEST SINGLE VIEW COMPLETED DATE/TIME: 12/26/2018 12:24 pm REASON FOR STUDY: CP COMPARISON: 12/04/2013 NUMBER OF VIEWS: One view. TECHNIQUE: Single frontal radiographic image of the chest acquired. LIMITATIONS: None. FINDINGS: LUNGS AND PLEURA: Stable appearance. MEDIASTINUM AND HILAR STRUCTURES: Stable heart size and mediastinal structures. HEART AND VASCULAR STRUCTURES: Stable appearance. SUPPORT DEVICES: Appropriate location without change. BONES: No acute findings. OTHER: No other significant finding. IMPRESSION: STABLE APPEARANCE OF THE CHEST. SUPPORT DEVICES UNCHANGED. TECHNICAL DOCUMENTATION: JOB ID: [id number] [employer] All Rights Reserved Reading location - IP/workstation name: [email or web address]
[2018-12-26 12:39] LABS: ABSOLUTE BASOPHILS # (AUTO) 0.1 10^3/uL (0.0-0.2); ABSOLUTE EOSINOPHILS # (AUTO) 0.4 10^3/uL (0.0-0.6); ABSOLUTE LYMPHOCYTES (AUTO) 2.1 10^3/uL (0.5-4.7); ABSOLUTE MONOCYTES (AUTO) 0.6 10^3/uL (0.1-1.4); ABSOLUTE NEUT (AUTO) 4.3 10^3/uL (1.7-8.2); BASOPHILS % (AUTO) 0.8 % (0-2); EOSINOPHILS % (AUTO) 4.7 % (0-6); HEMATOCRIT 49.3 % (37.9-51.0); HEMOGLOBIN 16.9 g/dL (13.5-17.0); MEAN CORPUSCULAR HEMOGLOBIN 30.1 pg (27.0-33.4); MEAN CORPUSCULAR HGB CONC 34.2 g/dL (32.0-36.0); MEAN CORPUSCULAR VOLUME 88 fl (80-97); MONOCYTES % (AUTO) 7.7 % (3-13); PLATELET COUNT 276 10^3/uL (150-450); RED CELL DISTRIBUTION WIDTH 13.5 % (11.5-14.0); SEGMENTED NEUTROPHILS % (AUTO) 57.8 % (42-78); TOTAL CELLS COUNTED % (AUTO) 100 %; WHITE BLOOD COUNT 7.4 10^3/uL (4.0-10.5)
[2018-12-26 13:07] LABS: ALANINE AMINOTRANSFERASE 72 U/L (21-72); ALBUMIN 4.6 g/dL (3.5-5.0); ALKALINE PHOSPHATASE 88 U/L (38-126); ANION GAP 11 (5-19); ASPARTATE AMINO TRANSFERASE 38 U/L (17-59); BILIRUBIN,DIRECT 0.2 mg/dL (0.0-0.4); BILIRUBIN,TOTAL 0.5 mg/dL (0.2-1.3); BLOOD UREA NITROGEN 14 mg/dL (7-20); CALCIUM 10.1 mg/dL (8.4-10.2); CARBON DIOXIDE 29 mmol/L (22-30); CHLORIDE 104 mmol/L (98-107); CREATINE KINASE 57 U/L (55-170); GLUCOSE 96 mg/dL (75-110); POTASSIUM 4.7 mmol/L (3.6-5.0); SODIUM 143.9 mmol/L (137-145); TOTAL PROTEIN 7.9 g/dL (6.3-8.2)
[2018-12-26 13:18] LABS: CREATINE KINASE MB < 0.22 ng/mL (<4.55); TROPONIN I < 0.012 ng/mL
[2018-12-26 16:19] LABS: APPEARANCE,URINE CLEAR; BILIRUBIN,URINE NEGATIVE (NEGATIVE); COLOR,URINE YELLOW; GLUCOSE, URINE NEGATIVE (NEGATIVE); KETONES,URINE NEGATIVE (NEGATIVE); LEUKOCYTE ESTERASE,URINE NEGATIVE (NEGATIVE); NITRITE,URINE NEGATIVE (NEGATIVE); PROTEIN,URINE NEGATIVE (NEGATIVE); URINE SPECIFIC GRAVITY 1.018; UROBILINOGEN,URINE NEGATIVE mg/dL (<2.0)
--- NOTE | 2018-12-26 17:19 | ER Document Report ---
ED Cardiac - General Chief Complaint: Chest Pain Stated Complaint: CHEST PAIN Time Seen by Provider: 12/26/18 11:51 Primary Care Provider: MERRY WINTER MD [Primary Care Provider] - Follow up as needed Mode of Arrival: Ambulatory TRAVEL OUTSIDE OF THE [place] IN LAST 30 DAYS: No - HPI Notes: Patient is a 38-year-old male that presents to the emergency department for chief complaint of chest pain. Patient reports acute onset of chest pain yesterday. The pain is left-sided and he describes it as a squeezing sensation. It lasts for 1 to 2 minutes at a time and then completely resolved. He reports 3 episodes yesterday and one today. He currently has no chest pain. He reports some mild diaphoresis with the pain but denies any shortness of breath nausea or vomiting. He denies any history of cardiac disease in the past. Patient states the pain has occurred at rest and with exertion. He denies aggravating or relieving factors. Past Medical History: Diabetes, hypertension Past Surgical History: Renal hernia repair Social History: Former smoker. Currently using vaporized nicotine. Denies alcohol or drug use Family History: Father of [place] at age 40 Allergies: Reviewed, see documented allergy list. REVIEW OF SYSTEMS: CONSTITUTIONAL : No fever No chills diaphoresis No recent illness EENT: No vision changes No congestion No sore throat CARDIOVASCULAR: chest pain No palpitations RESPIRATORY: No shortness of breath No cough No difficulty breathing GASTROINTESTINAL: No abdominal pain No nausea No vomiting No diarrhea GENITOURINARY: No dysuria No hematuria No difficulty urinating MUSCULOSKELETAL: No back pain No leg pain No arm pain SKIN: No rashes No lesions LYMPHATIC: No swollen, enlarged glands. NEUROLOGICAL: No lightheadedness No headache No weakness No paresthesias PSYCHIATRIC: No anxiety No depression PHYSICAL EXAMINATION: Vital signs reviewed, nursing noted reviewed. GENERAL: Well-appearing, well-nourished and in no acute distress. HEAD: Atraumatic, normocephalic. EYES: Eyes appear normal, extraocular movements intact, sclera anicteric, conjunctiva are normal. ENT: nares patent, oropharynx clear without exudates. Moist mucous membranes. NECK: Normal range of motion, supple without lymphadenopathy LUNGS: Breath sounds clear to auscultation bilaterally and equal. No wheezes rales or rhonchi. HEART: Regular rate and rhythm without murmurs ABDOMEN: Soft, nontender, normoactive bowel sounds. No rebound, guarding, or rigidity. No masses appreciated. EXTREMITIES: Nontender, good range of motion, no pitting or edema. NEUROLOGICAL: No focal neurological deficits. Moves all extremities spontaneously Motor and sensory grossly intact on exam. PSYCH: Normal mood, normal affect. SKIN: Warm, Dry, normal turgor, no rashes or lesions noted on exposed skin - Related Data Allergies/Adverse Reactions: No Known Allergies Allergy (Verified 12/26/18 11:06) Past Medical History - General Information source: Patient - Social History Smoking Status: Current Every Day Smoker Chew tobacco use (# tins/day): No Frequency of alcohol use: None Drug Abuse: None Family History: Reviewed & Not Pertinent, CAD Patient has suicidal ideation: No Patient has homicidal ideation: No - Past Medical History Cardiac Medical History: Reports: Hx Hypertension - ON MEDS Denies: Hx Coronary Artery Disease, Hx Heart Attack Pulmonary Medical History: Denies: Hx Asthma, Hx Bronchitis, Hx COPD, Hx Pneumonia Neurological Medical History: Reports: Hx Migraine. Denies: Hx Cerebrovascular Accident, Hx Seizures Endocrine Medical History: Reports: Hx Diabetes Mellitus Type 2 Renal/ Medical History: Denies: Hx Peritoneal Dialysis Musculoskeletal Medical History: Denies Hx Arthritis Past Surgical History: Reports: Hx Abdominal Surgery - hernia x2, Hx Appendec [place], Hx Cholecystectomy, Hx Inguinal Hernia - Right-sided - Immunizations Immunizations up to date: Yes Hx Diphtheria, Pertussis, Tetanus Vaccination: Yes Physical Exam - Vital signs Vitals: Temp Pulse Resp BP Pulse Ox 98.2 F 91 18 148/96 H 97 12/26/18 11:22 12/26/18 11:22 12/26/18 11:22 12/26/18 11:22 12/26/18 11:22 Course - Re-evaluation Re-evalutation: 12/26/18 17:18 Vitals reviewed. Nursing notes reviewed. Patient is currently asymptomatic. His initial cardiac work-up is unremarkable. He is PERC negative and I do not suspect PE. He has a negative troponin. He has normal renal function with no electrolyte derangements. Patient's delta troponin is also negative. He does have risk factors for heart disease but is well-appearing with no EKG changes or changes in his troponin. Patient will be referred to cardiology for close outpatient follow-up and stress test in the next few days. He was counseled on return precautions. He is stable at discharge. Laboratory 12/26/18 12/26/18 12/26/18 12:14 12:14 12:14 WBC 7.4 RBC 5.60 H Hgb 16.9 Hct 49.3 MCV 88 MCH 30.1 MCHC 34.2 RDW 13.5 Plt Count 276 Seg Neutrophils % 57.8 Lymphocytes % 29.0 Monocytes % 7.7 Eosinophils % 4.7 Basophils % 0.8 Absolute Neutrophils 4.3 Absolute Lymphocytes 2.1 Absolute Monocytes 0.6 Absolute Eosinophils 0.4 Absolute Basophils 0.1 Sodium 143.9 Potassium 4.7 Chloride 104 Carbon Dioxide 29 Anion Gap 11 BUN 14 Creatinine 0.87 Est GFR ( Amer) > 60 Est GFR (Non-Af Amer) > 60 Glucose 96 Calcium 10.1 Magnesium 2.4 H Total Bilirubin 0.5 Direct Bilirubin 0.2 Neonat Total Bilirubin Not Reportable Neonat Direct Bilirubin Not Reportable Neonat Indirect Bili Not Reportable AST 38 ALT 72 Alkaline Phosphatase 88 Creatine Kinase 57 CK-MB (CK-2) < 0.22 Troponin I < 0.012 Total Protein 7.9 Albumin 4.6 TSH Urine Color Urine Appearance Urine pH Ur Specific [place] Urine Protein Urine Glucose (UA) Urine Ketones Urine Blood Urine Nitrite Urine Bilirubin Urine Urobilinogen Ur Leukocyte Esterase Urine WBC (Auto) Urine RBC (Auto) U Hyaline Cast (Auto) Urine Mucus (Auto) Urine Ascorbic Acid 12/26/18 12/26/18 12/26/18 12:14 15:00 15:28 WBC RBC Hgb Hct MCV MCH MCHC RDW Plt Count Seg Neutrophils % Lymphocytes % Monocytes % Eosinophils % Basophils % Absolute Neutrophils Absolute Lymphocytes Absolute Monocytes Absolute Eosinophils Absolute Basophils Sodium Potassium Chloride Carbon Dioxide Anion Gap BUN Creatinine Est GFR ( Amer) Est GFR (Non-Af Amer) Glucose Calcium Magnesium Total Bilirubin Direct Bilirubin Neonat Total Bilirubin Neonat Direct Bilirubin Neonat Indirect Bili AST ALT Alkaline Phosphatase Creatine Kinase CK-MB (CK-2) Troponin I < 0.012 Total Protein Albumin TSH 0.57 Urine Color YELLOW Urine Appearance CLEAR Urine pH 7.0 Ur Specific [place] 1.018 Urine Protein NEGATIVE Urine Glucose (UA) NEGATIVE Urine Ketones NEGATIVE Urine Blood NEGATIVE Urine Nitrite NEGATIVE Urine Bilirubin NEGATIVE Urine Urobilinogen NEGATIVE Ur Leukocyte Esterase NEGATIVE Urine WBC (Auto) 0 Urine RBC (Auto) 1 U Hyaline Cast (Auto) 1 Urine Mucus (Auto) RARE Urine Ascorbic Acid NEGATIVE Chest X-Ray 12/26/18 11:58 IMPRESSION: STABLE APPEARANCE OF THE CHEST. SUPPORT DEVICES UNCHANGED. 12/26/18 17:19 - Vital Signs Vital signs: Temp Pulse Resp BP Pulse Ox 98.2 F 91 20 149/100 H 95 12/26/18 11:22 12/26/18 11:22 12/26/18 16:01 12/26/18 16:01 12/26/18 16:01 - Laboratory Result Diagrams: 12/26/18 12:14 12/26/18 12:14 Laboratory results interpreted by me: 12/26/18 12/26/18 12:14 12:14 RBC 5.60 H Magnesium 2.4 H - EKG Interpretation by Me Additional EKG results interpreted by me: 12/26/18 17:18 Interpreted by myself [id number]: Normal sinus rhythm, rate 95, normal axis, no ectopy, no STEMI Discharge - Discharge Clinical Impression: Chest pain Qualifiers: Chest pain type: unspecified Qualified Code(s): R07.9 - Chest pain, unspecified Condition: Stable Disposition: HOME, SELF-CARE Instructions: Chest Pain of Unclear Cause ([facility]) Additional Instructions: Please return to the emergency department if you have any worsening, or concern of your symptoms. Please return to the emergency department if you develop chest pain, difficulty breathing, severe abdominal pain, or ongoing vomiting. Please follow-up with your primary care physician in 2-3 days and any other recommended physicians. If prescribed, take all medications as directed. If you have any questions or concerns do not hesitate to return the emergency department for evaluation. Follow with Dr. Zaidi for stress test in the next 1-2 days Referrals: MERRY WINTER MD [Primary Care Provider] - Follow up as needed ANASTASIA ZAIDI MD [ACTIVE STAFF] - Follow up tomorrow
[2018-12-26 17:30] VITALS: BP 141/97
== END 2018-12-26 17:30 | disposition home or self-care (01) ==
LOC: ER 11:05
DX: R07.9 Chest pain, unspecified (principal); R61 Generalized hyperhidrosis; F17.290 Nicotine dependence, other tobacco product, uncomplicated; I10 Essential (primary) hypertension; Z79.899 Other long term (current) drug therapy; E11.9 Type 2 diabetes mellitus without complications
CPT/HCPCS: 36415; 71045; 80053; 81001; 82550; 82553; 83735; 84443; 84484; 85025; 93005; 93010; 99285

== ENCOUNTER 2019-08-01 16:21 | Emergency (ER) | payer BC ==
[2019-08-01] MEDS ORDERED: KETOROLAC TROMETHAMINE INJ/PF 30 MG/1 ML SDV IV ONE (18:24)
[2019-08-01] MEDS ORDERED: ONDANSETRON HCL INJ/PF 4 MG/2 ML SDV IV ONE (18:24)
--- NOTE | 2019-08-01 18:26 | ER Document Report ---
ED Medical Screen (RME) - General Chief Complaint: Flank Pain Stated Complaint: FLANK PAIN Time Seen by Provider: 08/01/19 18:13 Primary Care Provider: MERRY WINTER MD [Primary Care Provider] - Follow up as needed Notes: Patient is a 39-year-old male who presents emergency department with a chief complaint of abdominal pain. Patient reports he developed left side pain and pain to the left side of his umbilicus and left lower abdomen yesterday. Patient reports he has had increased urinary frequency but does not have any pain with urination or blood in the urine. Patient denies history of kidney stones. Patient reports nausea without vomiting or diarrhea. Patient reports he does have a history of a cholecystectomy, appendectomy and bilateral inguinal hernia repair. Patient denies fever. TRAVEL OUTSIDE OF THE [place] IN LAST 30 DAYS: No - Related Data Allergies/Adverse Reactions: No Known Allergies Allergy (Verified 08/01/19 18:12) Home Medications: gabapentin,tramadol, amlodipine Past Medical History - Social History Chew tobacco use (# tins/day): No Frequency of alcohol use: None Drug Abuse: None - Past Medical History Cardiac Medical History: Reports: Hx Hypertension - ON MEDS Denies: Hx Coronary Artery Disease, Hx Heart Attack Pulmonary Medical History: Denies: Hx Asthma, Hx Bronchitis, Hx COPD, Hx Pneumonia Neurological Medical History: Reports: Hx Migraine. Denies: Hx Cerebrovascular Accident, Hx Seizures Endocrine Medical History: Reports: Hx Diabetes Mellitus Type 2 Renal/ Medical History: Denies: Hx Peritoneal Dialysis Musculoskeltal Medical History: Denies Hx Arthritis Past Surgical History: Reports: Hx Abdominal Surgery - hernia x2, Hx Appendectomy, Hx Cholecystectomy, Hx Inguinal Hernia - Right-sided - Immunizations Immunizations up to date: Yes Hx Diphtheria, Pertussis, Tetanus Vaccination: Yes Physical Exam - Vital signs Vitals: Temp Pulse Resp BP Pulse Ox 98.3 F 107 H 18 175/101 H 98 08/01/19 16:38 08/01/19 16:38 08/01/19 16:38 08/01/19 16:38 08/01/19 16:38 - Abdominal Inspection: Normal Distension: No distension Bowel sounds: Normal Tenderness: Tender - tenderness to the left of the umbilicus and llq with palpation. - Back Back: Normal Notes: no cva tenderness. Course - Re-evaluation Re-evalutation: 08/01/19 18:26 I have greeted and performed a rapid initial assessment of this patient. A comprehensive ED assessment and evaluation of the patient, analysis of test results and completion of the medical decision making process will be conducted by additional ED providers. - Vital Signs Vital signs: Temp Pulse Resp BP Pulse Ox 98.3 F 107 H 18 175/101 H 98 08/01/19 16:38 08/01/19 16:38 08/01/19 16:38 08/01/19 16:38 08/01/19 16:38 Doctor's Discharge - Discharge Referrals: MERRY WINTER MD [Primary Care Provider] - Follow up as needed
[2019-08-01 19:13] LABS: APPEARANCE,URINE CLEAR; BILIRUBIN,URINE NEGATIVE (NEGATIVE); COLOR,URINE STRAW; GLUCOSE, URINE NEGATIVE (NEGATIVE); KETONES,URINE NEGATIVE (NEGATIVE); LEUKOCYTE ESTERASE,URINE NEGATIVE (NEGATIVE); NITRITE,URINE NEGATIVE (NEGATIVE); PROTEIN,URINE NEGATIVE (NEGATIVE); URINE SPECIFIC GRAVITY 1.008; UROBILINOGEN,URINE NEGATIVE mg/dL (<2.0)
[2019-08-01 19:19] LABS: ALBUMIN 5.1 g/dL (3.5-5.0); ALKALINE PHOSPHATASE 88 U/L (38-126); ANION GAP 16 (5-19); ASPARTATE AMINO TRANSFERASE 46 U/L (17-59); BLOOD UREA NITROGEN 15 mg/dL (7-20); CARBON DIOXIDE 26 mmol/L (22-30); CHLORIDE 97 mmol/L (98-107); GLUCOSE 95 mg/dL (75-110); POTASSIUM 3.8 mmol/L (3.6-5.0)
[2019-08-01 19:20] LABS: BILIRUBIN,DIRECT 0.2 mg/dL (0.0-0.4); BILIRUBIN,TOTAL 0.8 mg/dL (0.2-1.3); TOTAL PROTEIN 8.7 g/dL (6.3-8.2)
[2019-08-01 19:21] LABS: ABSOLUTE BASOPHILS # (AUTO) 0.1 10^3/uL (0.0-0.2); ABSOLUTE EOSINOPHILS # (AUTO) 0.3 10^3/uL (0.0-0.6); ABSOLUTE LYMPHOCYTES (AUTO) 3.2 10^3/uL (0.5-4.7); ABSOLUTE MONOCYTES (AUTO) 0.9 10^3/uL (0.1-1.4); ABSOLUTE NEUT (AUTO) 7.1 10^3/uL (1.7-8.2); BASOPHILS % (AUTO) 0.6 % (0-2); EOSINOPHILS % (AUTO) 2.2 % (0-6); HEMATOCRIT 48.6 % (37.9-51.0); HEMOGLOBIN 16.6 g/dL (13.5-17.0); LYMPHOCYTES % (AUTO) 27.9 % (13-45); MEAN CORPUSCULAR HEMOGLOBIN 30.1 pg (27.0-33.4); MEAN CORPUSCULAR HGB CONC 34.3 g/dL (32.0-36.0); MEAN CORPUSCULAR VOLUME 88 fl (80-97); MONOCYTES % (AUTO) 7.9 % (3-13); PLATELET COUNT 289 10^3/uL (150-450); RED BLOOD COUNT 5.53 10^6/uL (4.35-5.55); RED CELL DISTRIBUTION WIDTH 12.8 % (11.5-14.0); SEGMENTED NEUTROPHILS % (AUTO) 61.4 % (42-78); TOTAL CELLS COUNTED % (AUTO) 100 %; WHITE BLOOD COUNT 11.6 10^3/uL (4.0-10.5)
--- NOTE | 2019-08-01 20:23 | RADIOLOGY REPORT (SQ) ---
EXAM DESCRIPTION: CT ABDOMEN PELVIS WITH IV CONTRAST COMPLETED DATE/TME: 08/01/2019 18:23 CLINICAL HISTORY: 39 years, Male, left flank pain, left lower abdominal pain EXAM DESCRIPTION: CLINICAL HISTORY: left flank pain, left lower abdominal pain COMPARISON: None Available TECHNIQUE: Contiguous axial images of the abdomen and pelvis were obtained after the administration of intravenous contrast followed by reconstruction images.This exam was performed according to our departmental dose-optimization program, which includes automated exposure control, adjustment of the mA and/or kV according to patient size and/or use of iterative reconstruction technique. FINDINGS: The gallbladder is surgically absent. The liver, spleen, pancreas and kidneys are within normal limits. There is no hydronephrosis. Adrenal glands are within normal limits. Aorta is normal in caliber and tapering. No significant free fluid. No free air. No bowel obstruction. There is no stranding of the mesenteric fat. The appendix appears normal. No evidence of periappendiceal inflammation. IMPRESSION: No acute intra-abdominal abnormality
--- NOTE | 2019-08-01 23:56 | ER Document Report ---
ED GI/ - General Chief Complaint: Flank Pain Stated Complaint: FLANK PAIN Time Seen by Provider: 08/01/19 18:13 Primary Care Provider: MERRY WINTER MD [Primary Care Provider] - Follow up as needed Mode of Arrival: Ambulatory Information source: Patient TRAVEL OUTSIDE OF THE [place] IN LAST 30 DAYS: No - Related Data Allergies/Adverse Reactions: No Known Allergies Allergy (Verified 08/01/19 18:12) Home Medications: gabapentin,tramadol, amlodipine Past Medical History - General Information source: Patient - Social History Smoking Status: Former Smoker Chew tobacco use (# tins/day): No Frequency of alcohol use: None Drug Abuse: None Family History: None, Reviewed & Not Pertinent, CAD Patient has suicidal ideation: No Patient has homicidal ideation: No - Medical History Medical History: Other - Findings spasm stone working on his discharge is reasonably glad that there is been thank you his vertigo history of hypertension and diabetes - Past Medical History Cardiac Medical History: Reports: Hx Hypertension - ON MEDS Denies: Hx Coronary Artery Disease, Hx Heart Attack Pulmonary Medical History: Denies: Hx Asthma, Hx Bronchitis, Hx COPD, Hx Pneumonia Neurological Medical History: Reports: Hx Migraine. Denies: Hx Cerebrovascular Accident, Hx Seizures Endocrine Medical History: Reports: Hx Diabetes Mellitus Type 2 Renal/ Medical History: Denies: Hx Peritoneal Dialysis Musculoskeletal Medical History: Denies Hx Arthritis Past Surgical History: Reports: Hx Abdominal Surgery - hernia x2, Hx Ap pendectomy, Hx Cholecystectomy, Hx Inguinal Hernia - Right-sided - Immunizations Immunizations up to date: Yes Hx Diphtheria, Pertussis, Tetanus Vaccination: Yes Review of Systems - Review of Systems Gastrointestinal: See HPI Genitourinary: See HPI Physical Exam - Vital signs Vitals: Temp Pulse Resp BP Pulse Ox 98.3 F 107 H 18 175/101 H 98 08/01/19 16:38 08/01/19 16:38 08/01/19 16:38 08/01/19 16:38 08/01/19 16:38 Interpretation: Normal - Notes Notes: Patient in moderate distress with left flank pain. - General General appearance: Appears well, Alert - HEENT Head: Normocephalic, Atraumatic Eyes: Normal Pupils: PERRL - Respiratory Respiratory status: No respiratory distress Chest status: Nontender Breath sounds: Normal Chest palpation: Normal - Cardiovascular Rhythm: Regular Heart sounds: Normal auscultation Murmur: No - Abdominal Inspection: Normal Distension: No distension Bowel sounds: Normal Tenderness: Nontender, Other - Tenderness over the left flank area and CVA. Organomegaly: No organomegaly - Back Back: Normal, Nontender - Extremities General upper extremity: Normal inspection, Nontender, Normal color, Normal ROM, Normal temperature General lower extremity: Normal inspection, Nontender, Normal color, Normal ROM, Normal temperature, Normal weight bearing. No: Cedrick's sign - Neurological Neuro grossly intact: Yes Cognition: Normal Orientation: AAOx4 [place] Coma Scale Eye Opening: Spontaneous [place] Coma Scale Verbal: Oriented Don Coma Scale Motor: Obeys Commands [place]rapevine Coma Scale Total: 15 Speech: Normal Motor strength normal: LUE, RUE, LLE, RLE Sensory: Normal - Psychological Associated symptoms: Normal affect, Normal mood - Skin Skin Temperature: Warm Skin Moisture: Dry Skin Color: Normal Course - Vital Signs Vital signs: Temp Pulse Resp BP Pulse Ox 98.3 F 107 H 18 175/101 H 98 08/01/19 16:38 08/01/19 16:38 08/01/19 16:38 08/01/19 16:38 08/01/19 16:38 - Laboratory Result Diagrams: 08/01/19 18:43 08/01/19 18:43 Laboratory results interpreted by me: 08/01/19 08/01/19 08/01/19 18:30 18:43 18:43 WBC 11.6 H Chloride 97 L Total Protein 8.7 H Albumin 5.1 H Urine Blood SMALL H - Diagnostic Test Radiology reviewed: Image reviewed, Reports reviewed Discharge - Discharge Clinical Impression: Kidney stone, Left flank pain, Hematuria Condition: Stable Disposition: HOME, SELF-CARE Additional Instructions: Kidney Stone You are passing or have passed a kidney stone. These stones are usually due to increased calcium or uric acid concentrations in your urine. Stones within the kidney itself are not painful. The pain occurs as the stone leaves the kidney to pass down the long tube, called the ureter, leading to the bladder. If the stone is small, it will usually pass by itself. Most patients can pass the stone at home. You will usually receive medications for pain, nausea or vomiting, and sometimes a medication to assist in passing the kidney stone. However, if the pain is very severe or if vomiting prevents you from taking oral pain medications, you may need to return for further treatment. Drink three or four quarts of fluids per day. You will be given pain medi cation (if needed) and urine strainers. Strain all your urine to see if the stone passes. If your doctor has asked you to bring the stone in for analysis, return with the stone once it has passed. Return if pain or vomiting become severe, if you develop a high fever, if you are unable to pass your urine, or if other unusual symptoms occur. Prescriptions: Tamsulosin HCl [Flomax 0.4 mg Cap.sr] 0.4 mg PO DAILY #7 cap.sr.24h Ibuprofen [Motrin 800 mg Tablet] 800 mg PO Q8H PRN #30 tab PRN Reason: Oxycodone HCl/Acetaminophen [Percocet 5-325 mg Tablet] 1 - 2 tab PO Q4H PRN #15 tablet PRN Reason: For Pain Scale 4-5 Ondansetron [Zofran Odt 4 mg Tablet] 1 - 2 tab PO Q4H PRN #15 tab.rapdis PRN Reason: For Nausea/Vomiting Referrals: MERRY WINTER MD [Primary Care Provider] - Follow up as needed
[2019-08-02] MEDS ORDERED: ONDANSETRON HCL INJ/PF 4 MG/2 ML SDV IV ONE (00:29)
[2019-08-02] MEDS ORDERED: NORMAL SALINE 1000 ML 1,000 ML IV ONE (00:29)
[2019-08-02] MEDS ORDERED: MORPHINE SULFATE 10 MG/ML INJ IV PRN (00:29)
[2019-08-02 02:15] VITALS: BP 141/85
== END 2019-08-02 02:15 | disposition home or self-care (01) ==
LOC: ER 16:21
DX: N20.0 Calculus of kidney (principal); R31.9 Hematuria, unspecified; R10.9 Unspecified abdominal pain; I10 Essential (primary) hypertension; E11.9 Type 2 diabetes mellitus without complications; Z90.49 Acquired absence of other specified parts of digestive tract
CPT/HCPCS: 96376; 99284; 96361; 96374; 96375; 36415; 83690; 85025; 80053; 81001; 74177; J1885; J2270; J2405 ×2; J7030

== ENCOUNTER 2020-06-08 12:25 | Emergency (ER) | payer BC ==
[2020-06-08] MEDS ORDERED: MORPHINE SULFATE 10 MG/ML INJ IV ONE (12:45)
[2020-06-08] MEDS ORDERED: ONDANSETRON 4 MG TAB.RAPDIS PO ONE (12:45)
--- NOTE | 2020-06-08 12:51 | ER Document Report ---
ED Medical Screen (RME) - General Chief Complaint: Flank Pain Stated Complaint: FLANK/BACK PAIN Time Seen by Provider: 06/08/20 12:33 Primary Care Provider: MERRY WINTER MD [Primary Care Provider] - Follow up as needed TRAVEL OUTSIDE OF THE [place] IN LAST 30 DAYS: No - HPI Notes: 06/08/20 12:50 39-year-old male with past medical history pertinent for chronic pain from mesh placement for hernia repair to the emergency department with acute onset right flank pain that began yesterday. He admits to some nausea but no vomiting. Takes oxycodone 5/325 every day for 3 times a day. He states he took some this morning and he has not had any relief of his pain. He states he has had a little bit more difficulty urinating this morning as well but denies any shelly hematuria. Denies any fevers or chills. On brief medical screening exam he has right CVA tenderness. I performed a brief medical screening exam on the patient determined that the patient needs further evaluation and management by main side provider. I have placed initial orders to help expedite care. - Related Data Allergies/Adverse Reactions: No Known Allergies Allergy (Verified 08/01/19 18:12) Past Medical History - Social History Frequency of alcohol use: None Drug Abuse: None - Past Medical History Cardiac Medical History: Reports: Hx Hypertension - ON MEDS Denies: Hx Coronary Artery Disease, Hx Heart Attack Pulmonary Medical History: Denies: Hx Asthma, Hx Bronchitis, Hx COPD, Hx Pneumonia Neurological Medical History: Reports: Hx Migraine. Denies: Hx Cerebrovascular Accident, Hx Seizures Endocrine Medical History: Reports: Hx Diabetes Mellitus Type 2 Renal/ Medical History: Denies: Hx Peritoneal Dialysis Musculoskeltal Medical History: Denies Hx Arthritis Past Surgical History: Reports: Hx Abdominal Surgery - hernia x2, Hx Appendectomy, Hx Cholecystectomy, Hx Inguinal Hernia - Right-sided - Immunizations Immunizations up to date: Yes Hx Diphtheria, Pertussis, Tetanus Vaccination: Yes Physical Exam - Vital signs Vitals: Temp Pulse Resp BP Pulse Ox 99.5 F 119 H 18 140/91 H 100 06/08/20 12:30 06/08/20 12:30 06/08/20 12:30 06/08/20 12:30 06/08/20 12:30 Course - Vital Signs Vital signs: Temp Pulse Resp BP Pulse Ox 99.5 F 119 H 18 140/91 H 100 06/08/20 12:30 06/08/20 12:30 06/08/20 12:30 06/08/20 12:30 06/08/20 12:30 Doctor's Discharge - Discharge Referrals: MERRY WINTER MD [Primary Care Provider] - Follow up as needed
[2020-06-08 13:19] LABS: APPEARANCE,URINE CLEAR; BILIRUBIN,URINE NEGATIVE (NEGATIVE); CALCIUM OXALATE CRYSTALS,URINE RARE /HPF; COLOR,URINE YELLOW; GLUCOSE, URINE >=500 mg/dL (NEGATIVE); KETONES,URINE TRACE mg/dL (NEGATIVE); LEUKOCYTE ESTERASE,URINE NEGATIVE (NEGATIVE); NITRITE,URINE NEGATIVE (NEGATIVE); PROTEIN,URINE NEGATIVE (NEGATIVE); URINE SPECIFIC GRAVITY 1.017; UROBILINOGEN,URINE NEGATIVE mg/dL (<2.0)
--- NOTE | 2020-06-08 13:21 | RADIOLOGY REPORT (SQ) ---
EXAM DESCRIPTION: CT ABD/PELVIS NO ORAL OR IV IMAGES COMPLETED DATE/TIME: 06/08/2020 1:05 pm REASON FOR STUDY: flank pain, eval kidney stone COMPARISON: 2014 TECHNIQUE: CT scan of the abdomen and pelvis performed without intravenous or oral contrast. Images reviewed with lung, soft tissue, and bone windows. Reconstructed coronal and sagittal MPR images revi ewed. All images stored on PACS. All CT scanners at this facility use dose modulation, iterative reconstruction, and/or weight based d osing when appropriate to reduce radiation dose to as low as reasonably achievable (ALARA). [facility]: Dose Right [facility]: CareDose [facility]: Dose Right [facility]: Teradose 4D [facility]: Smart [place] RADIATION DOSE: CT Rad equipment meets quality standard of care and radiation dose reduction techniq ues were employed. CTDIvol: 16.9 mGy. DLP: 968 mGy-cm.mGy. LIMITATIONS: None. FINDINGS: LOWER CHEST: No significant findings. No nodules or infiltrates. NON-CONTRASTED LIVER, SPLEEN, ADRENALS: The liver appears to be mildly hypoattenuating. No masses. The spleen and adrenal glands are normal. PANCREAS: No masses. No peripancreatic inflammatory changes. GALLBLADDER: Surgically absent. RIGHT KIDNEY AND URETER: No suspicious masses. Assessment limited by lack of IV contrast. No signif icant calcifications. No hydronephrosis or hydroureter. LEFT KIDNEY AND URETER: No suspicious masses. Assessment limited by lack of IV contrast. No signifi cant calcifications. No hydronephrosis or hydroureter. AORTA AND RETROPERITONEUM: No aneurysm. No retroperitoneal masses or adenopathy. BOWEL AND PERITONEAL CAVITY: No obvious masses or inflammatory changes. No free fluid. APPENDIX: Surgically absent. PELVIS, BLADDER, AND ABDOMINAL WALL:No abnormal masses. No free fluid. Bladder normal. BONES: No significant findings. OTHER: No other significant finding. IMPRESSION: 1. No urinary pathology is appreciated. 2. Cannot exclude mild hepatic steatosis. COMMENT: Quality ID # [id number]: Final reports with documentation of one or more dose reduction techniques (e.g., Automated exposure control, adjustment of the mA and/or kV according to patient size, use of iterative reconstruction technique) TECHNICAL DOCUMENTATION: JOB ID: [id number] 2010 [employer]- All Rights Reserved Reading location - IP/workstation name: [email or web address]
[2020-06-08 13:30] LABS: ABSOLUTE BASOPHILS # (AUTO) 0.1 10^3/uL (0.0-0.2); ABSOLUTE EOSINOPHILS # (AUTO) 0.5 10^3/uL (0.0-0.6); ABSOLUTE LYMPHOCYTES (AUTO) 2.9 10^3/uL (0.5-4.7); ABSOLUTE MONOCYTES (AUTO) 1.2 10^3/uL (0.1-1.4); ABSOLUTE NEUT (AUTO) 5.4 10^3/uL (1.7-8.2); EOSINOPHILS % (AUTO) 5.1 % (0-6); HEMATOCRIT 43.1 % (37.9-51.0); HEMOGLOBIN 14.9 g/dL (13.5-17.0); LYMPHOCYTES % (AUTO) 28.6 % (13-45); MEAN CORPUSCULAR HEMOGLOBIN 30.3 pg (27.0-33.4); MEAN CORPUSCULAR HGB CONC 34.6 g/dL (32.0-36.0); MEAN CORPUSCULAR VOLUME 88 fl (80-97); MONOCYTES % (AUTO) 11.7 % (3-13); PLATELET COUNT 271 10^3/uL (150-450); RED BLOOD COUNT 4.92 10^6/uL (4.35-5.55); RED CELL DISTRIBUTION WIDTH 13.5 % (11.5-14.0); SEGMENTED NEUTROPHILS % (AUTO) 53.6 % (42-78); TOTAL CELLS COUNTED % (AUTO) 100 %; WHITE BLOOD COUNT 10.2 10^3/uL (4.0-10.5)
[2020-06-08 13:34] LABS: URINE AMPHETAMINES SCREEN NEGATIVE; URINE BARBITURATES SCREEN NEGATIVE; URINE BENZODIAZEPINES SCREEN NEGATIVE; URINE COCAINE SCREEN NEGATIVE; URINE MARIJUANA (THC) SCREEN NEGATIVE; URINE METHADONE SCREEN NEGATIVE; URINE PHENCYCLIDINE SCREEN NEGATIVE
[2020-06-08] MEDS ORDERED: KETOROLAC TROMETHAMINE INJ/PF 30 MG/1 ML SDV IV ONE (13:43)
--- NOTE | 2020-06-08 13:50 | ER Document Report ---
ED GI/ - General Chief Complaint: Flank Pain Stated Complaint: FLANK/BACK PAIN Time Seen by Provider: 06/08/20 12:33 Primary Care Provider: EDITA RIVERA PA-C [Primary Care Provider] - Follow up as needed Mode of Arrival: Ambulatory Information source: Patient Notes: 39-year-old man presenting to the emergency department with a complaint of right flank pain. States that he was resting sitting quietly yesterday when he began having pain in the right flank area. He denies a known injury or prior history of similar episodes. He has a history of chronic pain. He takes oxycodone 5/325 mg 3 times a day for right hernia repair/mesh related pain. Apparently he had his surgery done in 2017 and since August 2019 has been in pain management. He denies urinary symptoms, fever or trauma. TRAVEL OUTSIDE OF THE [place] IN LAST 30 DAYS: No - Related Data Allergies/Adverse Reactions: No Known Allergies Allergy (Verified 08/01/19 18:12) Past Medical History - General Information source: Patient - Social History Smoking Status: Never Smoker Frequency of alcohol use: None Drug Abuse: None Family History: None, Reviewed & Not Pertinent, CAD - Past Medical History Cardiac Medical History: Reports: Hx Hypertension - ON MEDS Denies: Hx Coronary Artery Disease, Hx Heart Attack Pulmonary Medical History: Denies: Hx Asthma, Hx Bronchitis, Hx COPD, Hx Pneumonia Neurological Medical History: Reports: Hx Migraine. Denies: Hx Cerebrovascular Accident, Hx Seizures Endocrine Medical History: Reports: Hx Diabetes Mellitus Type 2 Renal/ Medical History: Denies: Hx Peritoneal Dialysis Musculoskeletal Medical History: Denies Hx Arthritis Past Surgical History: Reports: Hx Abdominal Surgery - hernia x2, Hx Appendectomy, Hx Cholecystectomy, Hx Inguinal Hernia - Right-sided - Immunizations Immunizations up to date: Yes Hx Diphtheria, Pertussis, Tetanus Vaccination: Yes Review of Systems - Review of Systems Notes: Constitutional: Negative for fever. HENT: Negative for sore throat. Eyes: Negative for visual changes. Cardiovascular: Negative for chest pain. Respiratory: Negative for shortness of breath. Gastrointestinal: Negative for abdominal pain, vomiting or diarrhea. Genitourinary: Negative for dysuria. Musculoskeletal: HPI Skin: Negative for rash. Neurological: Negative for headaches, weakness or numbness. 10 point ROS negative except as marked above and in HPI. Physical Exam - Vital signs Vitals: Temp Pulse Resp BP Pulse Ox 99.5 F 119 H 18 140/91 H 100 06/08/20 12:30 06/08/20 12:30 06/08/20 12:30 06/08/20 12:30 06/08/20 12:30 - Notes Notes: PHYSICAL EXAMINATION: Physical Exam: General: Well-nourished well-developed 39-year-old man in mild distress secondary to pain. HEENT: NC/AT, pupils equal round and reactive to light, MM moist,nares clear, oropharynx clear, airway patent Neck: supple, no adenopathy, no masses. Good range of motion Lungs: clear, no wheezing, no rales no rhonchi CVS: Regular rate and rhythm no murmur gallop or rub Abdomen: Soft, active, nontender, no masses, no hepatosplenomegaly Ext: No edema, clubbing or cyanosis. Back: + Right flank tenderness, tightness in the right paraspinous muscles with slight abnormality compared to the left side. Neuro: Alert and responsive, moving all 4 extremities on command, cranial nerves intact, no focal findings Skin: Intact no open lesions, no rash Course - Re-evaluation Re-evalutation: 06/08/20 15:25 Explained to the patient and his CT is negative for a renal calculus or other intra-abdominal abnormalities. Given his symptoms appear that he is having muscle spasms in the right paraspinous muscle group. He is being treated with a muscle relaxant and applying a cold pack to the area of pain. Explained to him that deep massage may also be helpful. 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 Being discharged home with baclofen, he already is on Percocet. Patient is in agreement with the plan. - Vital Signs Vital signs: Temp Pulse Resp BP Pulse Ox 97.8 F 96 19 145/88 H 98 06/08/20 17:43 06/08/20 15:00 06/08/20 15:00 06/08/20 15:00 06/08/20 15:00 - Laboratory Result Diagrams: 06/08/20 13:20 06/08/20 13:20 Laboratory results interpreted by me: 06/08/20 06/08/20 13:00 13:20 Glucose 193 H AST 83 H ALT 183 H Urine Glucose (UA) >=500 H Urine Ketones TRACE H 06/08/20 15:24 I have reviewed laboratory data and used this information for the treatment decisions regarding the patient. LFTs were noted to be elevated, the patient notes that he is diabetic, he is also diagnosed with HERNANDES. - Diagnostic Test Radiology reviewed: Image reviewed, Reports reviewed Radiology results interpreted by me: 06/08/20 13:48 CT abdomen and pelvis with no contrast: Negative for kidney stone or hydronephrosis. No acute intra-abdominal findings questionable hepatic steatosis Discharge - Discharge Clinical Impression: Right flank pain, Spasm of muscle of lower back Condition: Good Disposition: HOME, SELF-CARE Instructions: Antispasmodics ([facility]) Additional Instructions: You were seen in the emergency department with right sided flank pain/back pain. The CAT scan that was negative for kidney stone or renal involvement. Your exam is significant for muscle spasms in the paraspinous muscle group. You are being given a prescription for muscle relaxant to take for continued pain as needed. Using a cold pack to the area will also help to reduce the symptoms. Deep massage may also be helpful. If your symptoms are worsening or if you have other concerns you may return to the emergency department for further evaluation and treatment HOME CARE INSTRUCTIONS & INFORMATION: Thank you for choosing us for your medical needs. We hope you're satisfied with the care you received. After you leave, you must properly care for your problem and, at the same time, observe its progress. Any condition can change. Some illnesses can change rapidly over hours or days. If your condition worsens, return to the Emergency Department or see your physician promptly. ABOUT YOUR X-RAYS AND EKG'S: If you had an EKG or X-rays taken, they have been read by the Emergency Physician. The X-rays and EKG's will also be read by a Radiologist or Licensed Professional Counselor within 24 hours. If discrepancies are noted, you will be notified by telephone. Please be certain the ED has a correct telephone number & address where you can be reached. Also, realize that some fractures or abnormalities do not show up on initial X-rays. If your symptoms continue, see your physician. ABOUT YOUR LABORATORY TEST: If you had laboratory tests, the results have been reviewed by the Emergency Physician. Some test results (for example cultures) may not be available for several days. You will be contacted if any test result shows you need additional treatment. Please be certain the ED has a correct telephone number and address where you can be reached. ABOUT YOUR MEDICATIONS: You will receive instructions on how to take your medicine on the prescription label you receive. Additional information may be provided by the Pharmacy. If you have questions afterwards, call the ED for clarification or further instructions. Some prescribed medications may cause d rowsiness. Do not perform tasks such as driving a car or operating machinery without consulting your Pharmacist. If you feel you need a refill of pain medication, your condition will need re-evaluation. Please do not call for a refill of any medication. ABOUT YOUR SIGNATURE: Signature of this document acknowledges to followin. Understanding that you received emergency treatment and that you may be released before al medical problems are known or treated. Please be certain the ED has a correct phone number & address where you can be reached. 2. Acknowledgement that you will arrange for follow-up care as recommended. 3. Authorization for the Emergency Physician to provide information to your follow-up Physician in order to maximize your care. AT ANY TIME, IF YOUR SYMPTOMS CHANGE SIGNIFICANTLY OR WORSEN OR YOU DEVELOP NEW SYMPTOMS, RETURN TO THE EMERGENCY DEPARTMENT IMMEDIATELY FOR RE-EVALUATION. OUR GOAL IS TO PROVIDE EXCELLENT MEDICAL CARE! WE HOPE THAT WE HAVE MET YOUR EXPECTATIONS DURING YOUR EMERGENCY DEPARTMENT VISIT AND THAT YOU FEEL YOU HAVE RECEIVED EXCELLENT CARE! Prescriptions: Baclofen [Baclofen 10 mg Tablet] 10 mg PO TID PRN #30 tab PRN Reason: Muscle Spasms Referrals: EDITA RIVERA PA-C [Primary Care Provider] - Follow up as needed Impression - Admit/DC Date/PCP Admission Date/Primary Care Provider: MERRY WINTER MD unknown - Additional Information Resuscitation Status: Full Code Referrals: EDITA RIVERA PA-C [Primary Care Provider] - Follow up as needed Prescriptions: Baclofen [Baclofen 10 mg Tablet] 10 mg PO TID PRN #30 tab PRN Reason: Muscle Spasms Home Medications: Amitriptyline HCl 100 mg PO HSP 11/24/16 Gabapentin 800 mg PO QID 11/24/16 Amlodipine Besylate/Benazepril [Amlodipine-Benazepril 5-10 mg] 1 cap PO DAILY 12/01/17 Metformin HCl 1,000 mg PO BID 12/01/17 Semaglutide [Ozempic] 0.25 mg SQ .WEEKLY 03/16/18 Ciprofloxacin HCl [Cipro 500 mg Tablet] 500 mg PO BID #20 tablet 05/04/18 Metronidazole [Flagyl 500 mg Tablet] 500 mg PO Q6H #40 tablet 05/04/18 Morphine Sulfate [Morphine Ir 15 mg Tablet] 15 mg PO Q6HP PRN #6 tab 05/04/18 Ibuprofen [Motrin 800 mg Tablet] 800 mg PO Q8H PRN #30 tab 08/02/19 Ondansetron [Zofran Odt 4 mg Tablet] 1 - 2 tab PO Q4H PRN #15 tab.rapdis 08/02/19 Oxycodone HCl/Acetaminophen [Percocet 5-325 mg Tablet] 1 - 2 tab PO Q4H PRN #15 tablet 08/02/19 Tamsulosin HCl [Flomax 0.4 mg Cap.sr] 0.4 mg PO DAILY #7 cap.sr.24h 08/02/19 Baclofen [Baclofen 10 mg Tablet] 10 mg PO TID PRN #30 tab 06/08/20
[2020-06-08 13:52] LABS: ALBUMIN 4.6 g/dL (3.5-5.0); ALKALINE PHOSPHATASE 115 U/L (38-126); ANION GAP 13 (5-19); ASPARTATE AMINO TRANSFERASE 83 U/L (17-59); BILIRUBIN,DIRECT 0.1 mg/dL (0.0-0.4); BILIRUBIN,TOTAL 0.5 mg/dL (0.2-1.3); BLOOD UREA NITROGEN 13 mg/dL (7-20); CALCIUM 9.5 mg/dL (8.4-10.2); CARBON DIOXIDE 23 mmol/L (22-30); CHLORIDE 103 mmol/L (98-107); GLUCOSE 193 mg/dL (75-110); POTASSIUM 3.9 mmol/L (3.6-5.0); TOTAL PROTEIN 7.6 g/dL (6.3-8.2)
[2020-06-08] MEDS ORDERED: HYDROMORPHONE HCL INJ/PF 2 MG/ML AMPULE IV ONE (15:22)
[2020-06-08] MEDS ORDERED: LORAZEPAM INJ 2 MG/1 ML VIAL IV ONE (15:23)
[2020-06-08 15:41] VITALS: BP 145/88
== END 2020-06-08 17:43 | disposition home or self-care (01) ==
LOC: ER 12:25
DX: T85.848A Pain due to other internal prosthetic devices, implants and grafts, initial encounter (principal); R10.9 Unspecified abdominal pain; Y83.8 Other surgical procedures as the cause of abnormal reaction of the patient, or of later complication, without mention of misadventure at the time of the procedure; I10 Essential (primary) hypertension; E11.9 Type 2 diabetes mellitus without complications; M62.830 Muscle spasm of back; K75.81 Nonalcoholic steatohepatitis (NASH); Z79.891 Long term (current) use of opiate analgesic
CPT/HCPCS: 99285; 96374; 96375; 36415; 83690; 85025; 80053; 81001; 80307; 74176; S0119; J1885; J2270; J1170; J2060

== ENCOUNTER 2020-06-22 13:31 | Emergency (ER) | payer BC ==
[2020-06-22] MEDS ORDERED: METOCLOPRAMIDE HCL 10 MG TABLET PO ONE (14:21)
--- NOTE | 2020-06-22 14:21 | ER Document Report ---
ED Medical Screen (RME) - General Chief Complaint: Headache Stated Complaint: HEADACHE Time Seen by Provider: 06/22/20 14:16 Primary Care Provider: EDITA RIVERA PA-C [Primary Care Provider] - Follow up as needed Mode of Arrival: Ambulatory Information source: Patient Notes: 39-year-old male presented to ED for complaint of migraine headaches. He states he normally takes Stadol and the headache goes away but he took it last night and he did not get any relief. He states he has been nausea and vomiting. He is a type II diabetic and usually checks his sugars once a week. He did not check it last night or today. He states he is not feeling any more thirsty or urinating any more than his normal. He states he did get a combination in the IV 1 time and that did not help him. We will get blood and urine give him some Reglan for his nausea right now and he will be seen by another provider. I have greeted and performed a rapid initial assessment of this patient. A comprehensive ED assessment and evaluation of the patient, analysis of test results and completion of medical decision making process will be conducted by an additional ED providers. TRAVEL OUTSIDE OF THE [place] IN LAST 30 DAYS: No - Related Data Allergies/Adverse Reactions: No Known Allergies Allergy (Verified 08/01/19 18:12) Past Medical History - Past Medical History Cardiac Medical History: Reports: Hx Hypertension - ON MEDS Denies: Hx Coronary Artery Disease, Hx Heart Attack Pulmonary Medical History: Denies: Hx Asthma, Hx Bronchitis, Hx COPD, Hx Pneumonia Neurological Medical History: Reports: Hx Migraine. Denies: Hx Cerebrovascular Accident, Hx Seizures Endocrine Medical History: Reports: Hx Diabetes Mellitus Type 2 Renal/ Medical History: Denies: Hx Peritoneal Dialysis Musculoskeltal Medical History: Denies Hx Arthritis Past Surgical History: Reports: Hx Abdominal Surgery - hernia x2, Hx Appendectomy, Hx Cholecystectomy, Hx Inguinal Hernia - Right-sided - Immunizations Immunizations up to date: Yes Hx Diphtheria, Pertussis, Tetanus Vaccination: Yes Physical Exam - Vital signs Vitals: Temp Pulse Resp BP Pulse Ox 99.8 F 135 H 18 134/85 H 98 06/22/20 13:45 06/22/20 13:45 06/22/20 13:45 06/22/20 13:45 06/22/20 13:45 Course - Vital Signs Vital signs: Temp Pulse Resp BP Pulse Ox 99.8 F 135 H 18 134/85 H 98 06/22/20 13:45 06/22/20 13:45 06/22/20 13:45 06/22/20 13:45 06/22/20 13:45 Doctor's Discharge - Discharge Referrals: EDITA RIVERA PA-C [Primary Care Provider] - Follow up as needed
[2020-06-22] MEDS ORDERED: NORMAL SALINE 1000 ML 1,000 ML IV ONE ×2 (14:23→18:10)
[2020-06-22 15:01] LABS: ABSOLUTE BASOPHILS # (AUTO) 0.1 10^3/uL (0.0-0.2); ABSOLUTE EOSINOPHILS # (AUTO) 0.1 10^3/uL (0.0-0.6); ABSOLUTE MONOCYTES (AUTO) 0.8 10^3/uL (0.1-1.4); ABSOLUTE NEUT (AUTO) 8.7 10^3/uL (1.7-8.2); BASOPHILS % (AUTO) 0.9 % (0-2); EOSINOPHILS % (AUTO) 0.6 % (0-6); HEMATOCRIT 45.3 % (37.9-51.0); HEMOGLOBIN 15.9 g/dL (13.5-17.0); LYMPHOCYTES % (AUTO) 17.2 % (13-45); MEAN CORPUSCULAR HEMOGLOBIN 30.6 pg (27.0-33.4); MEAN CORPUSCULAR HGB CONC 35.1 g/dL (32.0-36.0); MEAN CORPUSCULAR VOLUME 87 fl (80-97); MONOCYTES % (AUTO) 7.2 % (3-13); PLATELET COUNT 357 10^3/uL (150-450); RED BLOOD COUNT 5.19 10^6/uL (4.35-5.55); RED CELL DISTRIBUTION WIDTH 13.5 % (11.5-14.0); SEGMENTED NEUTROPHILS % (AUTO) 74.1 % (42-78); TOTAL CELLS COUNTED % (AUTO) 100 %; WHITE BLOOD COUNT 11.7 10^3/uL (4.0-10.5)
[2020-06-22 15:22] LABS: ALBUMIN 4.8 g/dL (3.5-5.0); ALKALINE PHOSPHATASE 104 U/L (38-126); ANION GAP 13 (5-19); ASPARTATE AMINO TRANSFERASE 61 U/L (17-59); BILIRUBIN,DIRECT 0.1 mg/dL (0.0-0.4); BILIRUBIN,TOTAL 0.7 mg/dL (0.2-1.3); BLOOD UREA NITROGEN 15 mg/dL (7-20); CALCIUM 9.8 mg/dL (8.4-10.2); CARBON DIOXIDE 23 mmol/L (22-30); CHLORIDE 103 mmol/L (98-107); GLUCOSE 116 mg/dL (75-110); POTASSIUM 4.1 mmol/L (3.6-5.0); TOTAL PROTEIN 7.9 g/dL (6.3-8.2)
[2020-06-22 15:33] LABS: APPEARANCE,URINE CLEAR; BILIRUBIN,URINE NEGATIVE (NEGATIVE); COLOR,URINE YELLOW; GLUCOSE, URINE NEGATIVE (NEGATIVE); KETONES,URINE NEGATIVE (NEGATIVE); LEUKOCYTE ESTERASE,URINE NEGATIVE (NEGATIVE); NITRITE,URINE NEGATIVE (NEGATIVE); PROTEIN,URINE NEGATIVE (NEGATIVE); URINE SPECIFIC GRAVITY 1.018; UROBILINOGEN,URINE NEGATIVE mg/dL (<2.0)
--- NOTE | 2020-06-22 15:52 | EKG REPORT ---
SEVERITY:- BORDERLINE ECG - SINUS TACHYCARDIA : Confirmed by: Crystal Frausto MD 22-Jun-2020 15:51:27
[2020-06-22] MEDS ORDERED: KETOROLAC TROMETHAMINE INJ/PF 30 MG/1 ML SDV IV ONE (18:11)
[2020-06-22] MEDS ORDERED: PROCHLORPERAZINE EDISYLATE INJ 10 MG/2 ML VIAL IV ONE (18:11)
--- NOTE | 2020-06-22 18:18 | ER Document Report ---
ED General - General Chief Complaint: Headache Stated Complaint: HEADACHE Time Seen by Provider: 06/22/20 14:16 Primary Care Provider: EDITA RIVERA PA-C [Primary Care Provider] - Follow up as needed Mode of Arrival: Ambulatory TRAVEL OUTSIDE OF THE [place] IN LAST 30 DAYS: No - HPI Notes: Chief complaint: Headache History of present illness: 39-year-old male with longstanding history of chronic/recurrent migraine headaches presents now with 2-day history of his typical migraine headache described as right anterior hemicranial pain associated with nausea, vomiting and scintillating scotomas. He denies any difficulty with speech or swallowing and denies any motor impairment. Headache was gradual in onset starting yesterday. Patient took some nasal Stadol at home which she said often breaks is more severe headaches but did not get any relief with this. He describes his pain currently is 5/10 intensity. Patient denies any fever or chills. No skin rashes. No recent trauma. Patient's history is remarkable for diabetes mellitus type 2 well-controlled with Metformin. He also has a history of hypertension. - Related Data Allergies/Adverse Reactions: No Known Allergies Allergy (Verified 08/01/19 18:12) Past Medical History - General Information source: Patient, [facility] Records - Social History Smoking Status: Never Smoker Frequency of alcohol use: None Drug Abuse: None Occupation: Massage therapist Family History: None, Reviewed & Not Pertinent, CAD - Past Medical History Cardiac Medical History: Reports: Hx Hypertension - ON MEDS Denies: Hx Coronary Artery Disease, Hx Heart Attack Pulmonary Medical History: Denies: Hx Asthma, Hx Bronchitis, Hx COPD, Hx Pneumonia Neurological Medical History: Reports: Hx Migraine. Denies: Hx Cerebrovascular Accident, Hx Seizures Endocrine Medical History: Reports: Hx Diabetes Mellitus Type 2 Renal/ Medical History: Denies: Hx Peritoneal Dialysis Musculoskeletal Medical History: Denies Hx Arthritis Past Surgical History: Reports: Hx Abdominal Surgery - hernia x2, Hx Appendectomy, Hx Cholecystectomy, Hx Inguinal Hernia - Right-sided - Immunizations Immunizations up to date: Yes Hx Diphtheria, Pertussis, Tetanus Vaccination: Yes Review of Systems - Review of Systems Notes: Constitutional: Negative for fever. HENT: Negative for sore throat. Eyes: As per HPI. Cardiovascular: Negative for chest pain. Respiratory: Negative for shortness of breath. Gastrointestinal: Negative for abdominal pain, vomiting or diarrhea. Genitourinary: Negative for dysuria. Musculoskeletal: Negative for back pain. Skin: Negative for rash. Neurological: As per HPI. 10 point ROS negative except as marked above and in HPI. Physical Exam - Vital signs Vitals: Temp Pulse Resp BP Pulse Ox 99.8 F 135 H 18 134/85 H 98 06/22/20 13:45 06/22/20 13:45 06/22/20 13:45 06/22/20 13:45 06/22/20 13:45 - Notes Notes: GENERAL: Well-developed well-nourished appearing in mild discomfort. SKIN: Good turgor no rashes. HEAD: Normocephalic atraumatic. EYES: PERRLA. EOMI. Conjunctivae and sclerae clear. EARS: CANALS AND TMS CLEAR. NOSE: CLEAR. MOUTH: Moist mucosa. Good dentition. No stridor or edema. No drooling. NECK: Supple. No masses or thyromegaly. No adenopathy. Carotids 2+ without bruits. No JVD. BACK: Symmetrical without tenderness. CHEST: Respirations unlabored. Breath sounds clear and symmetrical. HEART: Regular rhythm. No murmur gallop or rub. ABDOMEN: Soft nontender without masses, organomegaly or rebound. Bowel sounds normally active. No bruits. GENITALIA: Deferred. EXTREMITIES: No edema. No calf tenderness. Cap refill less than 1.5 seconds. Dorsalis pedis and posterior tibial pulses 3+ and symmetrical. NEUROLOGICAL: GCS 15. Alert and oriented x3. Normal gait. Fluent speech. Cranial nerves II through XII intact. Sensorimotor and cerebellar normal. Normal tone. PSYCHIATRIC: Appropriate affect. Course - Re-evaluation Re-evalutation: 06/22/20 20:05 Patient received IV Toradol and Compazine with some improvement but failure to totally resolve his headache. He has had a history of very resistant migraines in the past. His neurologic exam is normal here. He has no rashes no fever and there is no history of any recent trauma. His noncontrast head CT was normal. I am going to give him a small dose of Dilaudid and IV Decadron. He is referred to neurology on an outpatient basis for follow-up. 06/22/20 20:09 Findings, clinical impression and plan of treatment have been discussed with patient/family. Understanding of current findings and recommendations has been acknowledged by them and there is agreement regarding disposition and follow-up. - Vital Signs Vital signs: Temp Pulse Resp BP Pulse Ox 98.9 F 102 H 16 138/79 H 100 06/22/20 17:32 06/22/20 17:32 06/22/20 17:32 06/22/20 17:32 06/22/20 17:32 - Laboratory Result Diagrams: 06/22/20 14:39 06/22/20 14:39 Laboratory results interpreted by me: 06/22/20 06/22/20 06/22/20 14:19 14:39 14:39 WBC 11.7 H Absolute Neuts (auto) 8.7 H Glucose 116 H POC Glucose 114 H AST 61 H ALT 114 H - Diagnostic Test Radiology reviewed: Image reviewed, Reports reviewed Radiology results interpreted by me: 06/22/20 19:[address] 06/22/20 18:11 IMPRESSION: NORMAL BRAIN CT WITHOUT CONTRAST. EVIDENCE OF ACUTE STROKE: NO. - EKG Interpretation by Me Additional EKG results interpreted by me: 06/22/20 18:24 Twelve-lead EKG reviewed by me contemporaneously: 1445 hrs. Indication for study: Weakness Rhythm: Sinus tachycardia Rate: 119 Intervals: Normal QRS axis: Normal +[address]/T wave changes: None Comparison with prior tracing: Rate has increased since prior tracing of 12/26/2018 Interpretation: Sinus tachycardia Discharge - Discharge Clinical Impression: Migraine headache Qualifiers: Migraine type: with aura Status migrainosus presence: with status migrainosus Intractability: not intractable Qualified Code(s): G43.101 - Migraine with aura, not intractable, with status migrainosus Condition: Stable Disposition: HOME, SELF-CARE Additional Instructions: Migraine Headache The physician feels that your symptoms are due to a migraine attack. Migraines are caused by changes in the blood vessels of the head. Arteries go into spasm, often causing warning symptoms that a headache may begin soon. As the spasm goes away, the vessels dilate and throb, causing the pounding pain of a migraine headache. Migraines often cause nausea and vomiting. The treatment of headaches varies with severity and cause of pain. Not all headaches need pain shots -- in fact, there is evidence that using narcotics for headaches may make them worse in the long run. The physician will determine the therapy that's in your best interest for this particular headache. Medications are available that may prevent migraines, or stop them as they first occur. If one medication is not helpful, try another. If migraines are frequent, be patient -- follow the doctor's recommendations. Call the physician if you are worsening, or if new symptoms arise. Continue your regular medications. You have been given a work note for tomorrow. Follow-up with referral neurologist. Return here as needed for new or worsening symptoms: Pain that is worsening or unimproved Uncontrolled vomiting High fever or shaking chills Overall worsening Forms: Return to Work Referrals: EDITA RIVERA PA-C [Primary Care Provider] - Follow up as needed LYNN DURHAM MD [NO LOCAL MD] - Follow up as needed
--- NOTE | 2020-06-22 18:37 | RADIOLOGY REPORT (SQ) ---
EXAM DESCRIPTION: CT HEAD WITHOUT IMAGES COMPLETED DATE/TIME: 06/22/2020 6:27 pm REASON FOR STUDY: headache COMPARISON: None. TECHNIQUE: Axial images acquired through the brain without intravenous contrast. Images reviewed wi th bone, brain and subdural windows. Additional sagittal and coronal reconstructions were generated. Images stored on PACS. All CT scanners at this facility use dose modulation, iterative reconstruction, and/or weight based d osing when appropriate to reduce radiation dose to as low as reasonably achievable (ALARA). [facility]: Dose Right [facility]: CareDose [facility]: Dose Right [facility]: Teradose 4D [facility]: [employer] RADIATION DOSE: CT Rad equipment meets quality standard of care and radiation dose reduction techniq ues were employed. CTDIvol: 53.2 mGy. DLP: 1177 mGy-cm. mGy. LIMITATIONS: None. FINDINGS: VENTRICLES: Normal size and contour. CEREBRUM: No masses. No hemorrhage. No midline shift. No evidence for acute infarction. Normal gra y/white matter differentiation. No areas of low density in the white matter. CEREBELLUM: No masses. No hemorrhage. No alteration of density. No evidence for acute infarction. EXTRAAXIAL SPACES: No fluid collections. No masses. ORBITS AND GLOBE: No intra- or extraconal masses. Normal contour of globe without masses. CALVARIUM: No fracture. PARANASAL SINUSES: No fluid or mucosal thickening. SOFT TISSUES: No mass or hematoma. OTHER: No other significant finding. IMPRESSION: NORMAL BRAIN CT WITHOUT CONTRAST. EVIDENCE OF ACUTE STROKE: NO. COMMENT: Quality ID # [id number]: Final reports with documentation of one or more dose reduction techniques (e.g., Automated exposure control, adjustment of the mA and/or kV according to patient size, use of iterative reconstruction technique) TECHNICAL DOCUMENTATION: JOB ID: [id number] 2010 [employer]- All Rights Reserved Reading location - IP/workstation name: [email or web address]
[2020-06-22] MEDS ORDERED: HYDROMORPHONE HCL INJ/PF 2 MG/ML AMPULE IV ONE (20:03)
[2020-06-22] MEDS ORDERED: DEXAMETHASONE SOD PHOS INJ 10 MG/1 ML VIAL IV ONE (20:04)
[2020-06-22 20:45] VITALS: BP 136/78
== END 2020-06-22 20:44 | disposition home or self-care (01) ==
LOC: ER 13:31
DX: G43.101 Migraine with aura, not intractable, with status migrainosus (principal); R11.2 Nausea with vomiting, unspecified; R00.0 Tachycardia, unspecified; I10 Essential (primary) hypertension; E11.9 Type 2 diabetes mellitus without complications; Z79.84 Long term (current) use of oral hypoglycemic drugs
CPT/HCPCS: 93005; 99285; 96361; 96374; 96375; 36415; 82962; 85025; 80053; 81001; 70450; 93010; J1885; J1170; J0780; J7030; J1100